=== PATIENT | male | born 1945 | race Caucasian/White ===

== ENCOUNTER 2022-03-02 17:28 | Inpatient (IN) | payer MEDICARE, SELFPAY ==
[2022-03-02 17:39] VITALS: BP 132/64; PULSE 59; RESP 16; TEMP 36.1; O2SAT 97
[2022-03-02 21:13] VITALS: BMI 21.6
[2022-03-02 21:46] VITALS: PULSE 70
[2022-03-02] MEDS: Senna/Docusate Sodium 1 Tablet 2 TABLET PO (21:46)
[2022-03-02] MEDS: Atorvastatin Calcium 80 MG Tablet PO (21:46)
[2022-03-02] MEDS: Famotidine 20 MG Tablet PO (21:46)
[2022-03-02] MEDS: Metoprolol Tartrate 100 MG Tablet PO (21:46)
[2022-03-02] MEDS: traZODone 100 MG Tablet PO (21:47)
[2022-03-02 21:51] VITALS: BP 122/66; PULSE 62; RESP 16; TEMP 36.1; O2SAT 95
[2022-03-02 22:00] VITALS: PULSE 70; RESP 16; O2SAT 97
[2022-03-02 22:45] VITALS: BMI 21.6
[2022-03-03 06:01] LABS: Hematocrit 37.3 % (40-54); Hemoglobin 11.7 g/dL (13.0-16.5); Mean Corp Hgb Conc 31.4 g/dL (32-36); Mean Corpuscular Hgb 25.4 pg (27.0-32.0); Mean Corpuscular Volume 80.9 fL (80-94); Mean Platelet Vol. 9.7 fl (6.2-12.0); Platelet Count 137 K/mm3 (150-450); RBC Distribution Width CV 17.9 % (11.6-14.6); Red Blood Count 4.61 M/mm3 (4.6-6.2); White Blood Count 5.1 K/mm3 (4.4-11.0)
[2022-03-03 06:29] LABS: ALB/GLOB Ratio 1.1 RATIO (0.9-2.4); AST(SGOT) 19 U/L (15-37); Alanine Aminotransfer ALT/SGPT 20 U/L (16-61); Albumin, Serum 2.9 g/dL (3.2-5.0); Alkaline Phosphatase 56 U/L (45-117); Anion Gap 4 (5-15); BUN 21 mg/dL (7-18); BUN/Creat Ratio 15.7 RATIO (10-20); Calcium,Total 8.6 mg/dL (8.5-10.1); Chloride 109 mmol/L (98-107); Creatinine, Serum 1.34 mg/dL (0.70-1.30); EST Glomerular Filtration Rate 55 mL/min (>60); Est Glom Filt Rate - Afr Amer 67 mL/min (>60); Estimated Creatinine Clearance 39.12 ml/min; Globulin 2.6 g/dL (2.2-4.2); Glucose 94 mg/dL (74-106); Magnesium 1.9 mg/dL (1.6-2.6); Phosphorus 2.8 mg/dL (2.5-4.9); Potassium 4.1 mmol/L (3.5-5.1); Protein, Total 5.5 g/dL (6.4-8.2); Sodium Level 140 mmol/L (136-145)
[2022-03-03 06:35] LABS: Bedside Glucose 83 mg/dL (74-106)
[2022-03-03 07:19] VITALS: BP 112/54; PULSE 56; RESP 16; TEMP 37.2; O2SAT 99
[2022-03-03 07:20] VITALS: O2SAT 99
[2022-03-03] MEDS: Escitalopram Oxalate 20 MG Tablet PO (08:26)
[2022-03-03] MEDS: metFORMIN HCl 850 MG Tablet PO ×2 (08:26→16:32)
[2022-03-03] MEDS: Cyanocobalamin 500 MCG Tablet 1000 MCG PO (08:26)
[2022-03-03] MEDS: Famotidine 20 MG Tablet PO ×2 (08:26→20:29)
[2022-03-03] MEDS: Losartan Potassium 100 MG Tablet PO (08:26)
[2022-03-03 08:27] VITALS: PULSE 60
[2022-03-03] MEDS: Aspirin 81 MG TAB.CHEW PO (08:27)
[2022-03-03] MEDS: Metoprolol Tartrate 100 MG Tablet PO ×2 (08:27→20:28)
[2022-03-03] MEDS: Clopidogrel Bisulfate 75 MG Tablet PO (08:27)
[2022-03-03] MEDS: Senna/Docusate Sodium 1 Tablet 2 TABLET PO ×2 (08:28→20:29)
[2022-03-03 10:00] VITALS: BMI 21.6
--- NOTE | 2022-03-03 10:18 | HP.PCM_ITS ---
[facility] - General General Date of Admission: 03/02/22 Date of Service: 03/03/22 Chief Complaint: Debility secondary to CVA. [facility] Narrative GIA DOUGLAS, is a 77 YO M with a PMH of hypertension, hyperlipidemia, coronary artery disease, depression, diabetes mellitus type 2, B12 deficiency, remote TIA and GERD who presented to an emergency department on 02/27/2022 complaining of left side weakness and numbness in his left hand. He also had some numbness on the left side of his lower face. In the emergency department he had a slight left facial droop and denied headache. The initial NIHSS score was 2 and the sx improved while he was in the ED. He was admitted for observation for TIA. He was continued on a statin, aspirin and Plavix. Significant lab at admission included an elevated creatinine at 1.44. Lipid panel showed a total cholesterol of 119 with an HDL of 32 and an LDL of 50 on simvastatin 40 mg. Triglycerides were within normal limits. EKG revealed normal sinus rhythm with no suspicious ST or T wave changes. Stat CT brain without contrast showed no evidence of acute cortical infarct or intracranial hemorrhage. CTA of the head and neck showed no evidence of source vessel arterial occlusion within the head and neck. There was noncalcified plaque at the right carotid bifurcation and right internal carotid artery origin with estimated 45 to 50% stenosis. There was moderate atherosclerosis of the carotid siphons bilaterally with mild luminal narrowing but no flow significant intracranial stenosis. There was no evidence of acute cortical infarct or intracranial hemorrhage. There was atrophy and mild chronic ischemic white matter demyelination. At around 0300 that night He had seizure activity. On te lemetry he had bradycardia during the event down to 27. At 0400 he had increased neurologic deficits with left side flaccid and Left facial droop. He could not grasp with his left hand. 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 MRI of the brain was obtained on 02/28/2022 and showed evidence for small multifocal infarcts of the territory supplied by the right middle cerebral artery, NURIA/MCA watershed area and the LINUX SYSTEM ADMINISTRATOR. The thought was thought to represent subacute ischemia. There was mild to moderate prominence of the sulci and ventricles. On 03/01/2022 on neurological exam was grossly nonfocal except for mild weakness in the left upper extremity and left facial droop. He was alert and oriented x3. A transthoracic echocardiogram showed normal left ventricular systolic function with an EF of 60%. Bubble study was negative for R to L shunt. Gia was seen by the director of early childhood education at and he was diagnosed with severe malnutrition. He had decreased appetite for the preceding 6 months with moderate weight loss, moderate to severe muscle wasting and fat loss. Gia was also seen by PT/OT/ST and found to have dysphagia, left side weakness and cognitive deficits. Transfer to acute rehab at discharge was recommended. Gia was admitted to the acute inpatient rehab unit at [facility] on 03/02/2022 for 3 hours of therapy daily to restore independence/function at or near his level prior to the recent stroke. Afebrile VSS-blood pressure is within goal. Heart rate has ranged from 56-70 Maintaining appropriate oxygen saturation on RA Oral intake is good for breakfast this morning he ate 75 to 100% of his food. Paperwork from the preceding hospital says that he has been losing weight over the past 6 months and has a poor appetite with loss of muscle and fat. He was diagnosed with severe malnutrition. Post void residual today was 266. He is continent of both urine and stool. Discussed with nursing - no problems that need addressed Reviewed the PT/OT/ST notes Medication list reviewed. All lab from this morning was personally reviewed. Hemoglobin is low at 11.7 and the MCV is only 80.9. White blood cell count is within normal limits. Platelets are low at 137,000. Sodium and potassium are within normal limits. The BUN is elevated at 21 with a creatinine of 1.34 and a GFR of 55 but a estimated creatinine clearance of only 39. Hemoglobin A1c is elevated at 5.9. Magnesium and phosphorus are within normal limits. Hemoglobin at the previous hospital on 02/27/2022 was 13.9. Platelet count was 155,000. Creatinine was 1.44 with a BUN of 30. The hemoglobin A1c was 6.3. Gia tells me that he is having a difficult time remembering names for the past few years. He tells me that he has no deficit from the stroke but after a few minutes he was able to tell me he is here because he had a stroke. He denies any difficulty swallowing and tells me his thought processes are unchanged from his baseline prior to the stroke. He is very impulsive and has poor memory. I have found him out in the ríos walking around by himself and he knows how to remove the bed alarm. Will place a pad alarm on his bed and the chair when he is in the recliner. He has significant cognitive dysfunction and poor safety awareness. I spoke to his last night and I think she may also have memory deficits. [facility] Medical History (Updated 03/03/22 @ 21:[address] Xi Muller DO) Coronary artery disease Depression Diabetes mellitus, type 2 GERD (gastroesophageal reflux disease) Hypertension Seizure Snuff user Stroke/cerebrovascular accident Home Medications acetaminophen 325 mg tablet (Tylenol) 1,000 mg PO Q6H PRN Pain 03/02/22 [History Last Taken Unknown] aspirin 81 mg tablet 81 mg PO DAILY Heart health 03/02/22 [History Last Taken Unknown] atorvastatin 80 mg tablet 80 mg PO DAILY Cholestrol 03/02/22 [History Last Taken Unknown] clopidogrel 75 mg tablet 75 mg PO DAILY Supplement 03/02/22 [History Last Taken Unknown] cyanocobalamin (vitamin B-12) 500 mcg tablet (B-12 DOTS) 1,000 mcg PO DAILY supplement 03/02/22 [History Last Taken Unknown] escitalopram oxalate 20 mg tablet 20 mg PO DAILY Depression 03/02/22 [History Last Taken Unknown] famotidine 20 mg tablet 20 mg PO BID GERD 03/02/22 [History Last Taken Unknown] losartan 100 mg tablet 100 mg PO DAILY BP 03/02/22 [History Last Taken Unknown] metformin 850 mg tablet 850 mg PO BID Diabetes 03/02/22 [History Last Taken Unknown] metoprolol tartrate 100 mg tablet 100 mg PO BID BP 03/02/22 [History Last Taken Unknown] nitroglycerin 0.4 mg sublingual tablet 0.4 mg sublingual Q5M PRN Chest Pain 03/02/22 [History Last Taken Unknown] trazodone 100 mg tablet 100 mg PO QHS sleep 03/02/22 [History Last Taken Unknown] Allergy/AdvReac Type Severity Reaction Status Date / Time No Known Allergies Allergy Verified 03/02/22 18:03 Family History (Updated 03/03/22 @ 10:[address] Xi Muller DO) Other Diabetes Surgical History (Updated 03/03/22 @ 13:[address] Xi Muller DO) History of cholecystectomy History of coronary artery stent placement Social History (Updated 03/03/22 @ 13:[address] Xi Muller DO) household members: spouse and other details: Spouse is named is Melani. She sleeps on the first floor of the house an housing: house pets and animals: Yes Smoking Status: Former smoker Tobacco: How many years used: 20 Smokeless tobacco user: snuff and other how long ago did patient quit smokin years ago. 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 Constitutional Constitutional: Reports change in weight, weakness and weight loss Eyes Eyes: Denies change in vision, discharge from eye(s), double vision or eye pain ENT HEENT: Denies dysphagia, headache(s), loss taste/smell, nasal congestion, nasal discharge or sore throat Cardiovascular Cardiovascular: Denies chest pain, claudication, edema, palpitations or paroxysmal nocturnal dyspnea Respiratory/Chest Respiratory/Chest: Denies cough, shortness of breath at rest or shortness of breath with exertion Gastrointestinal Gastrointestinal: Denies abdominal pain, constipation, diarrhea, dyspepsia, nausea or vomiting Genitourinary Genitourinary: Denies dysuria, hematuria or urinary incontinence Musculoskeletal Musculoskeletal: Denies back pain or extremity pain Integumentary Integumentary: Denies dry skin, jaundice, pruritus, rash or wounds Neurologic Neurologic: Denies abnormal speech, confusion, focal weakness, headache(s), lack of coordination, numbness or sensory deficit Psychiatric Psychiatric: Reports depression and other Details: tells me that he does not know if he is depressed any longer but, he has been on an antidepressant for a while ; Denies anxiety Endocrine Endocrinology: Denies cold intolerance, heat intolerance, polydipsia or polyuria Hematologic/Lymphatic Hematologic/Lymphatic: Reports other Details: unaware that he is anemic ; Denies easy bleeding or lymphadenopathy Vital Signs Vital Signs Vital Signs: 03/02/22 17:39 03/02/22 21:46 03/02/22 21:51 Temperature 97.0 F L 96.9 F L Temperature Source Oral Temporal Pulse Rate 59 L 70 62 Respiratory Rate 16 16 Respiratory Effort Respiratory Depth Respiratory Pattern Blood Pressure 132/64 H 122/66 H Blood Pressure Mean 86 84 Blood Pressure Source Monitor Monitor Blood Pressure Position Sitting Semi-Fowlers Blood Pressure Location Right Arm Right Arm Pulse Ox 97 95 Oxygen Delivery Method Room Air Room Air 03/02/22 22:00 03/03/22 07:19 03/03/22 08:27 Temperature 98.9 F Temperature Source Oral Pulse Rate 70 56 L 60 Respiratory Rate 16 16 Respiratory Effort Normal Non-Labored Respiratory Depth Normal Respiratory Pattern Normal Blood Pressure 112/54 L Blood Pressure Mean 73 Blood Pressure Source Monitor Blood Pressure Position Supine Blood Pressure Location Left Arm Pulse Ox 97 99 Oxygen Delivery Method Room Air Room Air Weight Weight: 130 lb Body Mass Index (BMI) 21.6 Indicators for Scoring Admitted with or Primary Diagnosis of CVA/Stroke: Yes Hx of CVA/Stroke: Yes Modified Adonay Score MRS Score at time of Evaluation: 2-Slight disability (physically with slight disability but he has significant cognitive dysfunction/memory difficulties. ) NIHSS NIHSS 1a. Level of Consciousness: Alert; keenly responsive 1b. LOC Questions: Answers BOTH questions correctly. 1c. LOC Commands: Performs both tasks correctly. 2. Best Gaze: Normal 3. Visual: No visual loss 4. Facial Palsy: Minor paralysis (flattened nasolabial fold, asymmetry on smiling) (very mild L facial weakness.....I can not see the same number od teeth on the left side when he smiles. ) 5a. Left Arm: No drift; arm holds 90 (or 45) degrees for full 10 seconds 5b. Right Arm: No drift; arm holds 90 (or 45) degrees for full 10 seconds 6a. Left Leg: No drift; leg holds 30-degree position for full 5 seconds (very mild drift with the Left leg) 6b. Right Leg: No drift; leg holds 30-degree position for full 5 seconds 7. Limb Ataxia: Absent 8. Sensory: [id number] sensory loss; (some decrease in sensation in the LLE) 9. Best Language: No aphasia; normal 10. Dysarthria: Normal 11. Extinction and Inattention: No abnormality Total: 2 Stroke Questions Stroke Team Activated: No Physical Exam Const alert, oriented x3 and no apparent distress Constitutional Narrative: Sitting in the recliner at the bedside eating lunch. Talkative and pleasant. Unaware that he has any deficits from the stroke. General Appearance: cooperative HEENT normocephalic and head/scalp atraumatic HEENT Narrative: Has some hearing deficit. Does not have hearing aids but, I have to repeat things because he is not hearing me. Poor dentition with multiple missing teeth. He wears upper dentures but does not have a lower plate and has multiple teeth missing in the mandible. Mouth: dry mucous membranes Eyes PERRL and EOMs intact bilaterally Neck supple, no JVD, No nodes and no carotid bruits General: trachea midline Resp normal respiratory effort and clear to auscultation bilaterally Effort and Inspection: Negative for tachypneic or respiratory distress Cardio regular rate, regular rhythm, S1 normal heart sound, S2 normal heart sound, no murmurs, no rub and no gallops Cardio Narrative: No ectopy GI normal to inspection, nondistended, normoactive bowel sounds, soft to palpation and non-tender GI Narrative: No guarding with palpation. No hepatosplenomegaly and no masses appreciated. No abdominal bruits. Extremity no calf tenderness General Extremity: Negative for edema Skin Skin Narrative: has some scattered bruising. General Skin Exam: no breakdown Rashes: no rashes Wounds: Negative for wounds noted Neuro Neuro Narrative: See NIHSS scoring. Very mild left lower face weakness. Mild sensory loss in the LLE. No ataxia. No neglect. No visual loss. Mild decrease strength in the LLE. Short term memory is poor. Can not remember that he has to call when he needs to get out of bed. He has poor safety awareness and thinks he has no deficits from the stroke. He loses his balance when turning and when he fatigues he loses his balance....he also almost scissors the legs and loses balance when he is distracted while walking......he is unaware of this. Psych cooperative; Negative for thought process normal Psych Narrative: He is almost euphoric at times. Very pleasant and making jokes. Easily distracted. No agitation. Able to redirect him easily. Thought Content: hallucination(s) Positive for visual (He saw cats in the room 1-2 times while PT was seeing him this morning. ) Results Lab / Micro Data Result Diagrams: 03/03/22 05:06 03/03/22 05:06 Labs: Laboratory Results - last 24 hr 03/03/22 05:06: WBC 5.1, RBC 4.61, Hgb 11.7 L, Hct 37.3 L, MCV 80.9, MCH 25.4 L, MCHC 31.4 L, RDW Std Deviation 52.0 H, RDW Coeff of Irineo 17.9 H, Plt Count 137 L, MPV 9.7 03/03/22 05:06: Sodium 140, Potassium 4.1, Chloride 109 H, Carbon Dioxide 27.0, Anion Gap 4 L, BUN 21 H, Creatinine 1.34 H, Estim Creat Clear Calc 39.12, Est GFR (MDRD) Af Amer 67, Est GFR (MDRD) Non-Af 55 L, BUN/Creatinine Ratio 15.7, Glucose 94, Calcium 8.6, Phosphorus 2.8, Magnesium 1.9, Total Bilirubin 0.70, AST 19, ALT 20, Alkaline Phosphatase 56, Total Protein 5.5 L, Albumin 2.9 L, Globulin 2.6, Albumin/Globulin Ratio 1.1 03/03/22 06:13: POC Glucose 83 Assessment & Plan Assessment/Plan (1) Debility: (2) Stroke/cerebrovascular accident: (3) 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 Will need to follow up with neurology. (4) Visual hallucinations: (5) Left leg weakness: (6) Seizure: PLAN: 1 seizure on the night he was admitted to [place]. No EEG done. No recurrence and no AED at DC from [place]. (7) Severe protein-energy malnutrition: PLAN: Diagnosed at [place]. (8) Microcytic anemia: (9) Iron deficiency anemia: PLAN: Source of blood loss? (10) Hypertension: PLAN: Controlled (11) Diabetes mellitus, type 2: PLAN: HGBA1C 6.3 at [place] (12) Coronary artery disease: PLAN: Had 2 stents in the past about 10 years ago. (13) Depression: PLAN: On Lexapro. (14) Former smoker, stopped smoking in distant past: PLAN: 35 years ago and then started with snuff (15) Snuff user: PLAN: 2 puches a day (16) GERD (gastroesophageal reflux disease): (17) Thrombocytopenia: PLAN: Plan PLAN PT for gait stability OT for ADL's ST for evaluation Analgesics as needed Bowel protocol Fall precautions Assess for Anxiety/Depression GI prophylaxis with Pepcid DVT prophylaxis with heparin 5000 units subcu every 12 hours following DC from Rehab] Follow up with PCP, neurology, cardiology AM lab including CMP, CBC, Mag and Phos personally reviewed NEEDS A EVENT MONITOR AT DISCHARGE IF NOT SENT TO US BY [facility] - multifocal infarcts. IV iron sucrose and then ferrous sulfate + vitamin C thereafter. He is now on aspirin and Plavix and heparin will need to monitor platelet count closely. Decrease metformin to 500 mg p.o. twice daily and recheck Accu-Cheks twice daily. Charges/Coding Visit Charges Inpatient E&M: 31409 Init Hosp L3
[2022-03-03 11:38] LABS: Hemoglobin A1c 5.9 % (3.8-5.6)
--- NOTE | 2022-03-03 13:02 | REHABEVAL_ITS ---
Admission Information Primary Diagnosis:: Debility secondary to ischemic CVA Status Changes from Prescreening?: No changes Identified Actual Problem List:: Cognitve Impr/Memory Loss, Depression, Alteration in Nutrition, Mobility Impaired, Self Care Deficit and Alteration-Leisure Activ. Potential Problem List:: DVT, Bleeding, Infection, UTI, Aspiration, Falls, Skin Integrity and Depression Risk of Complications DVT: NATHANIEL Jennife[place] and - (Heparin 5000 units subcu every 12 hours) Bleeding: Monitor Lab Values, Nursing to Teach Precautions for anti-coagulation therapy., Wound, if applicable, to be assessed every shift. and Stroke patients assessed for lethargy or change in status. Infection: Clinical Staff to Monitor for S/S of infection: and S/S of infection include fever, redness, warmth, etc. Urinary Tract Infection: Monitor for frequency, burning, discomfort, or incontinence. and Nursing will obtain urine sample for urinalysis and C&S when ordered. Aspiration: Clinical staff will monitor for coughing, drooling, congestion., Speech will evaluate swallowing and dsyphasia. and Nursing will monitor patient swallowing during meals. Falls: Patient will be evaluated for Fall Precautions and Patient will be placed on Fall Precautions as indicated per protocol. Skin Breakdown: Nursing will assess skin daily using assessment tool. and Nursing will place on Skin Breakdown Precautions as indicated. Pain: Clinical staff will assess patient's pain level per protocol., Medications will be given, if needed, and the pain level reassessed. and Other methods: Massage, distraction, decrease stimulus, etc. used PRN. Plan of Care Patient requires physician specializing in physical medicine and rehab oversight to provide close medical supervision of rehab issues including: Pain Management, Sleep Problems, Bowel and Bladder, Medical and co-morbidity Management, DVT prophylaxis, Rehabilitation Leadership and Coordination of treatment team Patient needs Physical Therapy: For a minimum of 1 hour and At least 5 out of 7 days Patient needs Physical Therapy to improve:: Mobility, Strengthening, Transfers, Stretching, ROM, Endurance, Stairs, Gait and Balance Patient needs Occupational Therapy: For a minimum of 1 hour and At least 5 out of 7 days Patient needs Occupational Therapy to improve ADL's incl.: Eating, Grooming, Bathing, Dressing, Toileting, Toilet transfers, Community Reintegration, Higher functioning activities, Household tasks, Adaptive Equipment, Splinting and Other activities as determined Patient requires speech therapy: For a minimum of 1 hour and At least 5 out of 7 days Patient requires speech therapy for: Swallowing, Cognition, Language Skills and Compensatory Strategies Patient requires 24/ Rehabilitation Nursing for: Pain Issues, Identifying and preventing risk factors, Monitoring and reporting current medical conditions, Assisting with ambulation, transfer, and all ADL's, Teaching patients about disease process and medications, Family teaching, Providing safe environment, Bowel and Bladder Issues, Skin integrity and Medication Management Patient needs Decommissioning Well Site Manager/ Case Management for: Discharge Planning, Arranging Home Equipment or Services and Family Interventions Patient needs Dietary and Nutrition Services for: Adequate Nutrition, Nutritional Supplements and Nutritional Education Goals Patient will remain: free from falls and or injury at time of discharge. Patient will perform bed mobility at: MOD I level of assist. Patient will complete transfers from bed to chair at: MOD I level of assist. Patient will ambulate: - (500 feet on various surfaces to allow patient to return to the community. He will ambulate 300 feet to various locations at standby assist in a timely matter without increased distraction or balance issues.) Patient will complete upper body dressing at: MOD I level of assist. Patient will complete lower body dressing at: MOD I level of assist. Patient will complete toileting at: MOD I level of assist. Patient will perform bathing at: MOD I level of assist. Patient will complete grooming at: MOD I level of assist. Patient will complete home management skills at: MOD I level of assist. Patient will achieve: - (4 steps with 1 handrail at standby assist) Discharge Planning Pt Prognosis for Sig. Practical Improv. w/in Reasonable Time: Good Estimated Length of stay (days): 28 Anticipated D/C Destination: TBD Was Preadmission Assessment Accurate?: Yes
[2022-03-03 14:01] LABS: Ferritin 19 ng/mL (26-388); Iron 27 ug/dL (65-175); Iron Binding Capacity,Total 264 ug/dL (250-450); PERCENT IRON SATURATION 10.2 % (15.0-55.0)
--- NOTE | 2022-03-03 14:24 | NURSING ---
Patient very pleasant. Needs constant cues and reminders. Patient has been instructed operations business partner lindo use multiple times but he has not used it appropriately yet today.
[2022-03-03 16:15] LABS: Bedside Glucose 133 mg/dL (74-106)
[2022-03-03 20:00] VITALS: O2SAT 97
[2022-03-03 20:28] VITALS: BP 120/57; PULSE 59
[2022-03-03] MEDS: traZODone 100 MG Tablet PO (20:29)
[2022-03-03] MEDS: Atorvastatin Calcium 80 MG Tablet PO (20:30)
[2022-03-03 20:32] VITALS: BP 120/57; PULSE 59; RESP 16; TEMP 36.9; O2SAT 97
[2022-03-03] MEDS: Heparin Injection (Vial) 5,000 UNIT/ML VIAL 5000 UNIT SC (23:15)
[2022-03-04 07:15] LABS: Bedside Glucose 96 mg/dL (74-106)
[2022-03-04 07:21] VITALS: BP 111/54; PULSE 58; RESP 16; TEMP 36.3; O2SAT 98
[2022-03-04 07:39] LABS: Bacteria 0 SEEN /hpf (None Seen); Mucous, Urine 0 SEEN /hpf (<or=2+); Red Blood Cells-Urine 0 SEEN /hpf (0-5); Squamous Epithelial Cells - UA 0 SEEN /hpf (0-5); White Blood Cells 0 SEEN /hpf (0-5)
[2022-03-04 07:54] VITALS: O2SAT 98
[2022-03-04 08:06] LABS: Color, Urine Yellow (Yellow); Glucose, Dipstick Normal (Normal); Ketone-Dipstick Negative (Negative); Leukocyte Esterase-Dipstick 25 /ul (Negative); Nitrite-Dipstick Negative (Negative); Occult Blood-Urine Negative /ul (Negative); Protein-Dipstick Negative (Negative); Specific Gravity, Urine 1.015 (1.002-1.030); Urine Bilirubin Dipstick Negative (Negative); Urine Clarity Clear (Clear); Urine Urobilinogen Normal (Normal)
[2022-03-04] MEDS: Escitalopram Oxalate 20 MG Tablet PO (08:30)
[2022-03-04] MEDS: Losartan Potassium 100 MG Tablet PO (08:30)
[2022-03-04] MEDS: Cyanocobalamin 500 MCG Tablet 1000 MCG PO (08:30)
[2022-03-04] MEDS: Clopidogrel Bisulfate 75 MG Tablet PO (08:30)
[2022-03-04] MEDS: Aspirin 81 MG TAB.CHEW PO (08:30)
[2022-03-04] MEDS: Heparin Injection (Vial) 5,000 UNIT/ML VIAL 5000 UNIT SC ×2 (08:31→21:24)
[2022-03-04 08:33] VITALS: PULSE 60
[2022-03-04] MEDS: Metoprolol Tartrate 100 MG Tablet PO ×2 (08:33→21:23)
[2022-03-04] MEDS: Famotidine 20 MG Tablet PO ×2 (08:37→21:23)
[2022-03-04] MEDS: metFORMIN HCl 500 MG Tablet PO ×2 (09:42→17:04)
[2022-03-04] MEDS: Sodium Ferric Gluconat 250 MG in 0.9% Normal Saline 250 ML 135 MG IV (10:20)
[2022-03-04] MEDS: 0.9% Saline Lock 10 ML Syringe IV ×2 (10:24→21:25)
[2022-03-04 11:48] VITALS: BMI 21.6
[2022-03-04 16:45] LABS: Bedside Glucose 94 mg/dL (74-106)
[2022-03-04 19:46] VITALS: BP 136/75; PULSE 52; RESP 17; TEMP 37.5; O2SAT 99
[2022-03-04] MEDS: Atorvastatin Calcium 80 MG Tablet PO (21:22)
[2022-03-04 21:23] VITALS: BP 136/75; PULSE 52
[2022-03-04] MEDS: traZODone 100 MG Tablet PO (21:23)
[2022-03-05 07:22] VITALS: O2SAT 98
[2022-03-05 07:37] VITALS: BP 109/75; PULSE 82; RESP 18; TEMP 36.8; O2SAT 98
[2022-03-05 07:49] VITALS: PULSE 82
[2022-03-05] MEDS: Losartan Potassium 100 MG Tablet PO (07:49)
[2022-03-05] MEDS: Metoprolol Tartrate 100 MG Tablet PO ×2 (07:49→22:28)
[2022-03-05] MEDS: Aspirin 81 MG TAB.CHEW PO (07:49)
[2022-03-05] MEDS: Escitalopram Oxalate 20 MG Tablet PO (07:49)
[2022-03-05] MEDS: metFORMIN HCl 500 MG Tablet PO ×2 (07:50→17:07)
[2022-03-05] MEDS: Cyanocobalamin 500 MCG Tablet 1000 MCG PO (07:51)
[2022-03-05] MEDS: Famotidine 20 MG Tablet PO ×2 (07:53→22:28)
[2022-03-05] MEDS: Heparin Injection (Vial) 5,000 UNIT/ML VIAL 5000 UNIT SC ×2 (07:53→22:28)
[2022-03-05] MEDS: Clopidogrel Bisulfate 75 MG Tablet PO (07:54)
[2022-03-05 07:55] LABS: Bedside Glucose 64 mg/dL (74-106)
[2022-03-05 08:15] LABS: Bedside Glucose 76 mg/dL (74-106)
[2022-03-05] MEDS: 0.9% Saline Lock 10 ML Syringe IV (10:22)
[2022-03-05] MEDS: Sodium Ferric Gluconat 250 MG in 0.9% Normal Saline 250 ML 135 MG IV (10:22)
[2022-03-05 14:16] VITALS: BMI 21.6
[2022-03-05 16:45] LABS: Bedside Glucose 103 mg/dL (74-106)
[2022-03-05 19:18] VITALS: BP 134/57; PULSE 53; RESP 17; TEMP 36.8; O2SAT 98
[2022-03-05 22:28] VITALS: BP 134/57; PULSE 53
[2022-03-05] MEDS: Atorvastatin Calcium 80 MG Tablet PO (22:28)
[2022-03-05] MEDS: traZODone 100 MG Tablet PO (22:28)
[2022-03-06 07:21] LABS: Bedside Glucose 76 mg/dL (74-106)
[2022-03-06 07:36] VITALS: BP 120/66; PULSE 52; RESP 18; TEMP 36.4; O2SAT 94
[2022-03-06] MEDS: metFORMIN HCl 500 MG Tablet PO (09:06)
[2022-03-06 09:07] VITALS: BP 120/66; PULSE 58
[2022-03-06] MEDS: Metoprolol Tartrate 100 MG Tablet PO ×2 (09:07→20:56)
[2022-03-06] MEDS: Cyanocobalamin 500 MCG Tablet 1000 MCG PO (09:08)
[2022-03-06] MEDS: Aspirin 81 MG TAB.CHEW PO (09:08)
[2022-03-06] MEDS: Losartan Potassium 100 MG Tablet PO (09:08)
[2022-03-06] MEDS: Clopidogrel Bisulfate 75 MG Tablet PO (09:08)
[2022-03-06] MEDS: Escitalopram Oxalate 20 MG Tablet PO (09:08)
[2022-03-06] MEDS: Famotidine 20 MG Tablet PO ×2 (09:09→20:55)
[2022-03-06] MEDS: Heparin Injection (Vial) 5,000 UNIT/ML VIAL 5000 UNIT SC ×2 (10:20→20:57)
[2022-03-06] MEDS: 0.9% Saline Lock 10 ML Syringe IV ×2 (10:22→22:03)
[2022-03-06] MEDS: Sodium Ferric Gluconat 250 MG in 0.9% Normal Saline 250 ML 135 MG IV (10:22)
--- NOTE | 2022-03-06 10:53 | PCM.PROGNOTE ---
Subjective Subjective Afebrile VSS-blood pressure is well controlled. Heart rate over the past 24 hours has ranged from 50 to to 82. Maintaining appropriate oxygen saturation on RA-94 to 98% Oral intake is good for fluids and is eating 75-100% of his meals Fluid balance for 03/05/2022 was +785. The blood sugar record was reviewed. Yesterday a.m. his blood sugar was only 64 despite decreasing the metformin dose. Fasting today is 76. Discussed with nursing - no problems that need addressed other than he is impulsive Reviewed the PT/OT/ST notes Medication list reviewed. Stool for occult blood was negative. Urine had no RBCs. Julian denies lightheadedness, vertigo, CP, SOB at rest, SOB with exertion, cough, nausea, vomiting, abd pain, diarrhea, constipation, dysuria, calf pain and ankle swelling. He has no complaints today. Objective Data Objective Data Vital Signs: Vital Signs Temp Pulse Resp BP Pulse Ox O2 Del Method 97.6 F L 58 L 18 120/66 94 Room Air 03/06/22 07:36 03/06/22 09:07 03/06/22 07:36 03/06/22 09:07 03/06/22 07:36 03/06/22 07:36 Oxygen Delivery Method Room Air Weight: 130 lb Body Mass Index (BMI) 21.6 Intake & Output: Intake and Output for Last 24 Hours 03/04/22 03/05/22 03/06/22 23:59 23:59 23:59 Intake Total 2030 / 2030 1785 / 1785 Output Total 800 / 800 1000 / 1000 Balance 1230 / 1230 785 / 785 Lab / Micro Data Result Diagrams: 03/03/22 05:06 03/03/22 05:06 Labs: Laboratory Results - last 24 hr 03/05/22 16:23: POC Glucose 103 03/06/22 06:45: POC Glucose 76 Micro: Microbiology 03/04/22 07:15 Stool Stool Occult Blood (MALIA) - Final Physical Exam Const alert and no apparent distress Constitutional Narrative: Still with poor safety awareness and poor short term memory. Very pleasant and interacts well with staff and other patients. General Appearance: cooperative Resp clear to auscultation bilaterally Cardio regular rate, regular rhythm and no gallops GI normal to inspection, nondistended, normoactive bowel sounds, soft to palpation and non-tender Extremity no calf tenderness General Extremity: no tenderness to palpation of joints or extremities; Negative for edema Skin General Skin Exam: no breakdown Rashes: no rashes Wounds: Negative for wounds noted Neuro Neuro Narrative: Julian's biggest problem is with cognition. He is doing well with PT/OT. I suspect he had pre-existing dementia prior to the stroke. Psych cooperative; Negative for thought process normal Psych Narrative: He seems a little too euphoric at times. Poor attention span. Can not concentrate. 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 Possible Lewy body dementia with hallucinations and delusions vs. underlying mental health disorder. His tells me that he is having a phone affair with another woman and their conversations are getting more sexual. He talks to this woman within earshot of his . (4) Visual hallucinations: PLAN: He sees animals in his room that aren't there and smoke coming of the pages of a story he is trying to read. Several different therapists have noted this when working with him. (5) Left leg weakness: (6) Seizure: PLAN: No seizures in rehab and on no antiepileptics. (7) Severe protein-energy malnutrition: PLAN: Per the last hospital.......not per our electrical instrument repairer. Melani tells me that he has not been eating well and he has lost about 30 lbs in the last 6 months. (8) Microcytic anemia: PLAN: Due to iron deficiency. No source of blood loss so may be nutritional. He had a colonoscopy and EGD in 2019 and other than diverticulosis there were no abnormalities. (9) Iron deficiency anemia: PLAN: Received IV iron sucrose and is not on Vitamin C and ferrous sulfate with lunch daily. (10) Hypertension: PLAN: mostly controlled.....occasional systolic > 130. No lightheadedness. (11) Diabetes mellitus, type 2: PLAN: Having some low BS's......will decrease the Metformin. (12) Coronary artery disease: PLAN: Stable - no CP or SOB with exertion. (13) Depression: PLAN: Normal affect (14) Former smoker, stopped smoking in distant past: (15) Snuff user: (16) GERD (gastroesophageal reflux disease): (17) Thrombocytopenia: PLAN: due to antiplatelet agents and heparin? Continue to monitor. PLAN: Plan 1. Continue therapy 2. Obtain the results of most recent colonoscopy/EGD from Dr. Aguilera in [place] - obtained and reviewed. 3. Place Metformin on hold. 4. Monitor the BS's ACHS for 48 hours Charges/Coding Visit Charges Inpatient E&M: 51718 Subs Hosp L2
[2022-03-06 11:30] LABS: Bedside Glucose 91 mg/dL (74-106)
--- NOTE | 2022-03-06 12:48 | CASEMGMT ---
Social Work IDT met with patient and for Team meeting. Attempted to call son, but number is not working. Discussed patient's progress in PT/OT/ST/SN. Pt is physically doing well, but cognitively impaired. IDT expressed concern about pt and living at home together. Pt was caring for prior. SW inquired about the assistance pt provided to . 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 can drive. Pt does have little insight to cognitive deficits. Dr suggesting pt possibly having underlying Lewy-Body Dementia as evidenced by noting to previous short-term memory problems, and pt having intermittent visual hallucinations. SW to get new phone number for son and contact him. Educated to [facility] [place] insurance with [employer]D 2/2 and continued stay is not guaranteed. SW to continue to follow for DC planning. Will ReTeam weekly. WILMER Urias [employer]
[2022-03-06 16:30] LABS: Bedside Glucose 103 mg/dL (74-106)
[2022-03-06 17:00] VITALS: BMI 21.6
[2022-03-06 20:00] VITALS: BP 137/67; PULSE 62; RESP 16; TEMP 36.5; O2SAT 98
[2022-03-06] MEDS: Atorvastatin Calcium 80 MG Tablet PO (20:55)
[2022-03-06 20:56] VITALS: BP 137/67; PULSE 62
[2022-03-06] MEDS: traZODone 100 MG Tablet PO (20:56)
[2022-03-06 22:25] LABS: Bedside Glucose 89 mg/dL (74-106)
--- NOTE | 2022-03-07 06:44 | NURSING ---
AM blood sugar 68, pt denies symptoms, given orange juice with sugar, will recheck in 15 minutes.
[2022-03-07 07:05] VITALS: BP 125/61; PULSE 60; RESP 16; TEMP 36.4; O2SAT 96
[2022-03-07 07:26] LABS: Bedside Glucose 68 mg/dL (74-106)
[2022-03-07 07:26] LABS: Bedside Glucose 94 mg/dL (74-106)
[2022-03-07 07:45] VITALS: BP 125/61; PULSE 60
[2022-03-07] MEDS: Metoprolol Tartrate 100 MG Tablet PO ×2 (07:45→21:22)
[2022-03-07] MEDS: Heparin Injection (Vial) 5,000 UNIT/ML VIAL 5000 UNIT SC ×2 (07:45→21:22)
[2022-03-07] MEDS: Famotidine 20 MG Tablet PO ×2 (07:46→21:22)
[2022-03-07] MEDS: Escitalopram Oxalate 20 MG Tablet PO (07:46)
[2022-03-07] MEDS: Cyanocobalamin 500 MCG Tablet 1000 MCG PO (07:46)
[2022-03-07] MEDS: Losartan Potassium 100 MG Tablet PO (07:46)
[2022-03-07] MEDS: Aspirin 81 MG TAB.CHEW PO (07:46)
[2022-03-07] MEDS: Clopidogrel Bisulfate 75 MG Tablet PO (07:46)
[2022-03-07 12:26] LABS: Bedside Glucose 97 mg/dL (74-106)
[2022-03-07 14:34] VITALS: BMI 21.6
--- NOTE | 2022-03-07 15:54 | CHAPLAIN ---
Type of Pastoral Visit _x__ Initial Visit ___ Follow-up Visit ___ On-call Visit ___ General Patient Visit ___ Spiritual Assessment ___ Family Conference ___ Bereavement ___ Rapid Response ___ Code Blue ___ Other (describe below) Pastoral Care Referral From _x__ Patient ___ Family ___ Nurse ___ Physician ___ Paving Supervisor ___ Senior Network Engineer ___ Other (describe below) Sacrament/Intervention _x__ Active listening ___ Anointing ___ Pentecostal ___ Bereavement ___ Communion _x__ Ela exploration ___ _x__ Life review _x__ Prayer ___ Reconciliation ___ Sacrament of Sick _x__ Supportive presence ___ Wedding ___ Other (describe below) Pastoral Comments patient is pleasant and receptive to visit of this electro mechanical assembler; pt reports some improvement but admits not as fast as I had hoped; pt is concerned about his at home and was hoping to get home sooner rather than later; pt's mayra is in his young granddaughter who wants him home too; pt states that he puts things in God's hands and welcomes a prayer
[2022-03-07 17:15] LABS: Bedside Glucose 164 mg/dL (74-106)
[2022-03-07 19:34] VITALS: BP 141/87; PULSE 55; RESP 17; TEMP 36.6; O2SAT 97
[2022-03-07 21:22] VITALS: PULSE 61
[2022-03-07] MEDS: traZODone 100 MG Tablet PO (21:22)
[2022-03-07] MEDS: Atorvastatin Calcium 80 MG Tablet PO (21:22)
[2022-03-07] MEDS: 0.9% Saline Lock 10 ML Syringe IV (21:28)
[2022-03-07 21:30] VITALS: BMI 21.6
[2022-03-07 22:00] VITALS: PULSE 62; RESP 15; O2SAT 97
[2022-03-07 23:05] LABS: Bedside Glucose 160 mg/dL (74-106)
[2022-03-08 07:00] LABS: Bedside Glucose 89 mg/dL (74-106)
[2022-03-08 08:04] VITALS: BP 127/63; PULSE 54
[2022-03-08] MEDS: Famotidine 20 MG Tablet PO ×2 (08:04→21:52)
[2022-03-08] MEDS: Metoprolol Tartrate 100 MG Tablet PO ×2 (08:04→21:53)
[2022-03-08] MEDS: Aspirin 81 MG TAB.CHEW PO (08:04)
[2022-03-08] MEDS: Escitalopram Oxalate 20 MG Tablet PO (08:04)
[2022-03-08] MEDS: Losartan Potassium 100 MG Tablet PO (08:04)
[2022-03-08] MEDS: Heparin Injection (Vial) 5,000 UNIT/ML VIAL 5000 UNIT SC ×2 (08:04→21:52)
[2022-03-08] MEDS: Cyanocobalamin 500 MCG Tablet 1000 MCG PO (08:04)
[2022-03-08] MEDS: Clopidogrel Bisulfate 75 MG Tablet PO (08:04)
[2022-03-08 09:47] VITALS: BP 127/63; PULSE 54; RESP 16; TEMP 36.4; O2SAT 97
[2022-03-08 10:31] VITALS: BMI 21.6
[2022-03-08 11:55] LABS: Bedside Glucose 95 mg/dL (74-106)
[2022-03-08] MEDS: 0.9% Saline Lock 10 ML Syringe IV (16:54)
[2022-03-08 17:15] LABS: Bedside Glucose 106 mg/dL (74-106)
--- NOTE | 2022-03-08 17:15 | PCM.PROGNOTE ---
Subjective Subjective Afebrile VSS Maintaining appropriate oxygen saturation on RA Oral intake is good since he has been in rehab. He is eating 75 to 100% of his meals. ? why he was losing weight? Has not been weighed since admission. Discussed with nursing - no problems that need addressed. Less impulse and is calling the nurse when he wants to get out of bed or out of the recliner into bed. Reviewed the PT/OT/ST notes Medication list reviewed. Julian denies lightheadedness, vertigo, CP, SOB at rest, SOB with exertion, cough, nausea, vomiting, abd pain, diarrhea, constipation, dysuria, calf pain and ankle swelling. He is sleeping well and eating good. No agitation and no restlessness. Following the rules better. Less impulsive. Objective Data Objective Data Vital Signs: Vital Signs Temp Pulse Resp BP Pulse Ox O2 Del Method 97.5 F L 54 L 16 127/63 H 97 Room Air 03/08/22 09:47 03/08/22 09:47 03/08/22 09:47 03/08/22 09:47 03/08/22 09:47 03/08/22 09:47 Oxygen Delivery Method Room Air Weight: 130 lb Body Mass Index (BMI) 21.6 Intake & Output: Intake and Output for Last 24 Hours 03/06/22 03/07/22 03/08/22 23:59 23:59 23:59 Intake Total 1460 / 1460 1670 / 1670 1090 / 1090 Output Total 500 / 500 Balance 960 / 960 1670 / 1670 1090 / 1090 Lab / Micro Data Result Diagrams: 03/03/22 05:06 03/03/22 05:06 Labs: Laboratory Results - last 24 hr 03/07/22 16:50: POC Glucose 164 H 03/07/22 21:21: POC Glucose 160 H 03/08/22 06:34: POC Glucose 89 03/08/22 11:33: POC Glucose 95 Micro: Microbiology 03/04/22 07:15 Stool Stool Occult Blood (MALIA) - Final Physical Exam Const alert, oriented x3 and no apparent distress General Appearance: cooperative HEENT HEENT Narrative: Mucous membranes are moist. Cardio regular rate, regular rhythm and no gallops Cardio Narrative: No ectopy GI normal to inspection, nondistended, normoactive bowel sounds, soft to palpation and non-tender Extremity no calf tenderness General Extremity: Negative for edema Skin Skin Narrative: has some scattered bruising. General Skin Exam: no breakdown Rashes: no rashes Psych cooperative; Negative for thought process normal Psych Narrative: He seems a little too euphoric at times. Poor attention span. Can not concentrate. Thought Content: hallucination(s) Positive for visual (He saw cats in the room 1-2 times while PT was seeing him this morning. ) Assessment & Plan Assessment/Plan (1) Debility: (2) Stroke/cerebrovascular accident: (3) Cognitive deficit as late effect of cerebrovascular accident (CVA): PLAN: Likely in conjunction with pre-existing dementia. Possible Lewy body dementia with hallucinations and delusions vs. underlying mental health disorder. His tells me that he is having a phone affair with another woman and their conversations are getting more sexual. He talks to this woman within earshot of his . (4) Visual hallucinations: PLAN: He sees animals in his room that aren't there and smoke coming of the pages of a story he is trying to read. Several different therapists have noted this when working with him. (5) Left leg weakness: (6) Seizure: PLAN: No seizures in rehab and on no antiepileptics. (7) Severe protein-energy malnutrition: PLAN: Per the last hospital.......not per our barrel rib matting machine operator. Melani tells me that he has not been eating well and he has lost about 30 lbs in the last 6 months. (8) Microcytic anemia: PLAN: Due to iron deficiency. No source of blood loss so may be nutritional. He had a colonoscopy and EGD in 2019 and other than diverticulosis there were no abnormalities. (9) Iron deficiency anemia: PLAN: Received IV iron sucrose and is not on Vitamin C and ferrous sulfate with lunch daily. (10) Hypertension: PLAN: mostly controlled.....occasional systolic > 130. No lightheadedness. (11) Diabetes mellitus, type 2: PLAN: Having some low BS's......will decrease the Metformin. (12) Coronary artery disease: PLAN: Stable - no CP or SOB with exertion. (13) Depression: PLAN: Normal affect (14) Former smoker, stopped smoking in distant past: (15) Snuff user: (16) GERD (gastroesophageal reflux disease): (17) Thrombocytopenia: PLAN: due to antiplatelet agents and heparin? Continue to monitor. PLAN: Plan 1. Continue therapy 2. We will have Julian follow-up with neurology for the stroke but also for suspected dementia with hallucinations and delusions. 3. Recheck a CBC and BMP on Sunday. 4. Continue current medications with the exception of metformin. We have been holding the Metformin since the and the BS's have not been elevated. Will DC today. 5. DC Plavix after 4 weeks and continue on ASA alone. DC on Mar 27 Charges/Coding Visit Charges Inpatient E&M: 35820 Subs Hosp L2
[2022-03-08 19:21] VITALS: BP 137/65; PULSE 53; RESP 18; TEMP 36.9; O2SAT 99
[2022-03-08] MEDS: Atorvastatin Calcium 80 MG Tablet PO (21:52)
[2022-03-08] MEDS: traZODone 100 MG Tablet PO (21:52)
[2022-03-08 21:53] VITALS: PULSE 56
[2022-03-08 22:36] LABS: Bedside Glucose 92 mg/dL (74-106)
[2022-03-09 01:59] VITALS: BMI 21.6
[2022-03-09] MEDS: 0.9% Saline Lock 10 ML Syringe IV (05:12)
[2022-03-09 07:20] LABS: Bedside Glucose 94 mg/dL (74-106)
[2022-03-09 07:53] VITALS: BP 148/64; PULSE 55
[2022-03-09] MEDS: Metoprolol Tartrate 100 MG Tablet PO ×2 (07:53→21:16)
[2022-03-09] MEDS: Losartan Potassium 100 MG Tablet PO (07:54)
[2022-03-09] MEDS: Heparin Injection (Vial) 5,000 UNIT/ML VIAL 5000 UNIT SC ×2 (07:54→21:18)
[2022-03-09] MEDS: Cyanocobalamin 500 MCG Tablet 1000 MCG PO (07:54)
[2022-03-09] MEDS: Famotidine 20 MG Tablet PO ×2 (07:54→21:16)
[2022-03-09] MEDS: Aspirin 81 MG TAB.CHEW PO (07:54)
[2022-03-09] MEDS: Escitalopram Oxalate 20 MG Tablet PO (07:54)
[2022-03-09] MEDS: Clopidogrel Bisulfate 75 MG Tablet PO (07:54)
[2022-03-09 08:14] VITALS: BP 148/64; PULSE 55; RESP 15; TEMP 36.9; O2SAT 96
--- NOTE | 2022-03-09 09:41 | CASEMGMT ---
Addendum entered by Tania Jya 03/09/22 17:24: Received return phone call from son. SW explained pt's progress in therapy and concerns with pt and being in the home together. Explained both appear to have cognitive impairment and pt will need 24/7 supervision at home, along with assistance with meds and finances. Pt still having issues with balance and poor insight to deficits. Son agreed and confirms mother has shown signs of early Alzheimer's for several years which is why pt had been caring for her. SW suggested AL for both to get additional care as needed, but that will take some time to place and may not happen by time of DC. Explained insurance update is today and unsure if pt will get approved more time. Son expressed understanding and will speak with siblings about this information. SW explained HHC or OP can be coordinated for ongoing therapy; if HHC, a SW can assist with ongoing placement options. Son stated HHC would not be a good idea because his mom is a hoarder and there are 2ft wide pathways in the home, so if pt fell, it would be a much worse fall. SW explained an APS referral will be made in that case to assist with ongoing resources for in the home and potential placement outside of the home, along with helping the children in navigating this situation. SW can coordinate OP therapy, but pt cannot drive and unsure if is save to drive. Son stated he will figure that out. SW offered [facility] SNF for PT/OT/ST. Son agreed. Son expressed great appreciation for care for pt and this worker's conversation and assistance. SW to continue to follow. Original Note: Social Work Left message with son, Israel, to discuss DC plans or get accurate phone number for brother to discuss. Will continue to follow. Tania Jay ,WILMER PFEIFFERW
[2022-03-09 11:17] VITALS: BMI 21.6
--- NOTE | 2022-03-09 11:27 | NURSING ---
Event monitor removed and placed in return box to be mailed back to facility.
[2022-03-09 11:35] LABS: Bedside Glucose 116 mg/dL (74-106)
[2022-03-09 16:25] LABS: Bedside Glucose 96 mg/dL (74-106)
[2022-03-09 19:52] VITALS: BP 127/65; PULSE 55; RESP 16; TEMP 36.9; O2SAT 96
[2022-03-09 21:15] VITALS: O2SAT 98
[2022-03-09 21:16] VITALS: BP 127/65; PULSE 55
[2022-03-09] MEDS: traZODone 100 MG Tablet PO (21:16)
[2022-03-09] MEDS: Atorvastatin Calcium 80 MG Tablet PO (21:16)
[2022-03-09 22:10] LABS: Bedside Glucose 162 mg/dL (74-106)
[2022-03-10 05:58] LABS: Hemoglobin 11.6 g/dL (13.0-16.5); Mean Corp Hgb Conc 30.5 g/dL (32-36); Mean Corpuscular Hgb 25.6 pg (27.0-32.0); Mean Corpuscular Volume 83.7 fL (80-94); Mean Platelet Vol. 9.9 fl (6.2-12.0); Platelet Count 154 K/mm3 (150-450); RBC Distribution Width CV 19.8 % (11.6-14.6); RBC Distribution Width SD 57.7 fl (35.1-43.9); Red Blood Count 4.54 M/mm3 (4.6-6.2); White Blood Count 4.8 K/mm3 (4.4-11.0)
[2022-03-10 06:27] LABS: Anion Gap 6 (5-15); BUN 21 mg/dL (7-18); BUN/Creat Ratio 14.4 RATIO (10-20); Calcium,Total 8.5 mg/dL (8.5-10.1); Chloride 112 mmol/L (98-107); Creatinine, Serum 1.46 mg/dL (0.70-1.30); EST Glomerular Filtration Rate 50 mL/min (>60); Est Glom Filt Rate - Afr Amer 60 mL/min (>60); Glucose 75 mg/dL (74-106); Potassium 4.3 mmol/L (3.5-5.1); Sodium Level 145 mmol/L (136-145)
[2022-03-10 07:42] VITALS: BP 114/60; PULSE 60; RESP 16; TEMP 36.4; O2SAT 98
[2022-03-10 07:50] LABS: Bedside Glucose 89 mg/dL (74-106)
[2022-03-10] MEDS: Losartan Potassium 100 MG Tablet PO (09:36)
[2022-03-10] MEDS: Aspirin 81 MG TAB.CHEW PO (09:36)
[2022-03-10] MEDS: Famotidine 20 MG Tablet PO ×2 (09:36→21:05)
[2022-03-10] MEDS: Cyanocobalamin 500 MCG Tablet 1000 MCG PO (09:36)
[2022-03-10] MEDS: Clopidogrel Bisulfate 75 MG Tablet PO (09:36)
[2022-03-10 09:37] VITALS: PULSE 60
[2022-03-10] MEDS: Escitalopram Oxalate 20 MG Tablet PO (09:37)
[2022-03-10] MEDS: Metoprolol Tartrate 100 MG Tablet PO ×2 (09:37→21:05)
[2022-03-10] MEDS: Heparin Injection (Vial) 5,000 UNIT/ML VIAL 5000 UNIT SC ×2 (09:38→21:05)
--- NOTE | 2022-03-10 10:34 | PCM.PN.BLA ---
Progress Note Afebrile Blood pressure is well controlled Maintaining appropriate oxygen saturation on room air Adequate oral intake Blood sugar record was reviewed and there are no blood sugars greater than 180 on no medication for diabetes. All lab from this morning was personally reviewed. The white blood cell count is normal at 4.8. Hemoglobin is stable at 11.6. Platelets are within normal limits. Sodium is 145 and potassium is 4.3. The BUN is 21 and the creatinine is 1.46, up from 1.34 on 03/03/2022. I met with Julian's and his 2 sons Israel and Julian yesterday. We discussed plans for discharge. Israel and Julian tell me that he cannot go home to his house in the current state at the end. Melani is a hoarder and apparently there is barely any place to walk unobstructed. Julian and Israel would like there mother to be the first to contact with any decisions regarding [place]'s disposition at [place] but, if there is a problem we will call Israel. Julian lives close to his parents and he is the first contact if there are problems with Julian and someone needs to come in. They are aware that I am going to complete paperwork to have Julian's drivers license removed. They wonder if he can ever get it back. I told them they can discuss that with his neurologist. We discussed the dementia, possibly Lewy Body and the hallucinations and delusions. He has no hx of a mental health disorder. We are making an appt for Julian to see Dr. Alexander for the stroke but, also to be evaluated for Lewy body dementia. No tx at this time since patients with Lewy Body dementia are very sensitive to medications, negrito antipsychotics. We have had no behavior problems. Julian is having a very good day today. He is alert and oriented. 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 He is not euphoric and he is not having hallucinations. He c/o dizziness at times, mostly when he is bending over. We had a discussion about Lewy Body Dementia and why I suspect he has this. I also told him he could not drive at [place]. We talked him not being able to go home at [place] and he asked appropriate questions. He revealed his is a hoarder and he has tried in the past to clean up after her but, in 48 hours it is back to the way it was and she gets angry when he tries to clean up and throw things away. He has 1 room in the house for his things, he keeps his antiques in there. Assessment & Plan Assessment/Plan (1) Debility: (2) Stroke/cerebrovascular accident: (3) Cognitive deficit as late effect of cerebrovascular accident (CVA): (4) Visual hallucinations: (5) Left leg weakness: (6) Seizure: (7) Severe protein-energy malnutrition: (8) Microcytic anemia: (9) Iron deficiency anemia: (10) Hypertension: (11) Diabetes mellitus, type 2: (12) Coronary artery disease: (13) Depression: (14) Former smoker, stopped smoking in distant past: (15) Snuff user: (16) GERD (gastroesophageal reflux disease): (17) Thrombocytopenia: (18) Lewy body dementia: PLAN: Plan 1. Continue therapy 2. I discussed with the professor of social work that Israel and Julian would like their mother to be the first contact for decisions regarding Julian and if there is any problem we are to call Israel. 3. Appointment will be made with Dr. Alexander for follow-up. 4. Discontinue Seoa-[id number] blood sugars are less than 180 on no treatment for diabetes. 5. 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 6. Encouragement provided to Julian to increase his fluid intake. 7. Since Julian is lucid today and able to make decisions about his care going forward the is going to discuss options for DC with him. 8. check orthostatic BP's today Visit Charges Inpatient E&M: 15622 Subs Hosp L2
--- NOTE | 2022-03-10 11:16 | CASEMGMT ---
Addendum entered by Tania Jay 03/10/22 16:19: [facility] does not have any beds Addendum entered by Tania Jay 03/10/22 15:34: Received return call from . is aware it is not recommended that pt to return home from . SKINNY explained this worker attempted to speak with pt about DC options, but he was not understanding conversation and does not want to go anywhere but home. reports she has received calls from pt saying he isn't going to a detention because he cannot afford it. knows the house needs to be cleaned up prior to pt returning home. SW explained it is a benefit to her and the pt to have the home conditions improved. expressed understanding. SW explained [facility] insurance may not approve SNF stay, and if not, it would be an OOP cost. Inquired about finances. was unsure of monthly income or savings account balance since pt managed the finances. is going to talk to the pt and son about financial information. agrees they do not have money to pay for a SNF. SW explained Medicaid, but that it takes time. Offered to leave Medicaid application in pt's room for to complete over the weekend. agreeable. SKINNY inquired about SNF choices. would like referrals to [facility], [facility] and [facility]; does not want [facility]. [facility] Will continue to follow. Original Note: Social Work spoke with and children yesterday about DC planning. and children all agree pt cannot return home right now, with the home in that condition, especially. All in agreement for SNF or AL. Children would like to make initial decisions and children can assist. SKINNY attempted to call to follow up, but it went straight to voicemail and the voicemail box was full. SKINNY left message with sonIsrael and advised of sending lists of AL and SNFs to all parties via [employer] and insurance NRD 03/16. SW to follow for continued discharge planning. Tania Jay, WILMER TAVARES
[2022-03-10 15:51] VITALS: BMI 21.6
[2022-03-10 21:05] VITALS: PULSE 63
[2022-03-10] MEDS: Atorvastatin Calcium 80 MG Tablet PO (21:05)
[2022-03-10] MEDS: traZODone 100 MG Tablet PO (21:05)
[2022-03-10 21:11] VITALS: BP 128/59; PULSE 63; RESP 16; TEMP 36.9; O2SAT 98
[2022-03-10 22:15] LABS: Bedside Glucose 175 mg/dL (74-106)
[2022-03-11 00:04] VITALS: BMI 21.6
[2022-03-11 06:45] VITALS: BP 126/59; BP 132/63; BP 135/59; PULSE 49; PULSE 51; PULSE 53
[2022-03-11] MEDS: Losartan Potassium 100 MG Tablet PO (08:01)
[2022-03-11] MEDS: Aspirin 81 MG TAB.CHEW PO (08:01)
[2022-03-11] MEDS: Escitalopram Oxalate 20 MG Tablet PO (08:02)
[2022-03-11] MEDS: Heparin Injection (Vial) 5,000 UNIT/ML VIAL 5000 UNIT SC ×2 (08:02→20:25)
[2022-03-11 08:03] VITALS: BP 116/58; PULSE 46
[2022-03-11] MEDS: Famotidine 20 MG Tablet PO ×2 (08:03→20:26)
[2022-03-11] MEDS: Cyanocobalamin 500 MCG Tablet 1000 MCG PO (08:04)
[2022-03-11] MEDS: Clopidogrel Bisulfate 75 MG Tablet PO (08:04)
[2022-03-11 08:16] VITALS: BP 134/69; PULSE 58; RESP 18; TEMP 36.4; O2SAT 98
[2022-03-11 16:33] VITALS: BMI 21.6
[2022-03-11 20:23] VITALS: BP 124/54; PULSE 56; RESP 18; TEMP 36.6; O2SAT 97
[2022-03-11] MEDS: traZODone 100 MG Tablet PO (20:25)
[2022-03-11 20:26] VITALS: PULSE 59
[2022-03-11] MEDS: Atorvastatin Calcium 80 MG Tablet PO (20:26)
[2022-03-11] MEDS: Metoprolol Tartrate 100 MG Tablet PO (20:26)
[2022-03-11 20:30] VITALS: BMI 21.6
[2022-03-12 08:33] VITALS: BP 116/64; PULSE 60; RESP 16; TEMP 36.4; O2SAT 98
[2022-03-12 08:43] VITALS: BP 116/64; PULSE 60
[2022-03-12] MEDS: Senna/Docusate Sodium 1 Tablet 2 TABLET PO (08:43)
[2022-03-12] MEDS: Metoprolol Tartrate 100 MG Tablet PO ×2 (08:43→20:52)
[2022-03-12] MEDS: Clopidogrel Bisulfate 75 MG Tablet PO (08:43)
[2022-03-12] MEDS: Cyanocobalamin 500 MCG Tablet 1000 MCG PO (08:44)
[2022-03-12] MEDS: Aspirin 81 MG TAB.CHEW PO (08:45)
[2022-03-12] MEDS: Heparin Injection (Vial) 5,000 UNIT/ML VIAL 5000 UNIT SC ×2 (08:45→20:51)
[2022-03-12] MEDS: Famotidine 20 MG Tablet PO ×2 (08:46→20:51)
[2022-03-12] MEDS: Losartan Potassium 100 MG Tablet PO (08:46)
[2022-03-12] MEDS: Escitalopram Oxalate 20 MG Tablet PO (08:46)
[2022-03-12 16:02] VITALS: BMI 21.6
[2022-03-12 19:16] VITALS: BP 135/60; PULSE 58; RESP 16; TEMP 36.8; O2SAT 99
[2022-03-12 20:43] VITALS: BMI 21.6
[2022-03-12 20:52] VITALS: PULSE 61
[2022-03-12] MEDS: traZODone 100 MG Tablet PO (20:52)
[2022-03-12] MEDS: Atorvastatin Calcium 80 MG Tablet PO (20:52)
[2022-03-13 07:38] VITALS: BP 122/68; PULSE 50; RESP 18; TEMP 36.3; O2SAT 99
[2022-03-13] MEDS: Escitalopram Oxalate 20 MG Tablet PO (09:13)
[2022-03-13] MEDS: Clopidogrel Bisulfate 75 MG Tablet PO (09:13)
[2022-03-13] MEDS: Aspirin 81 MG TAB.CHEW PO (09:13)
[2022-03-13] MEDS: Cyanocobalamin 500 MCG Tablet 1000 MCG PO (09:13)
[2022-03-13] MEDS: Losartan Potassium 100 MG Tablet PO (09:13)
[2022-03-13] MEDS: Famotidine 20 MG Tablet PO ×2 (09:13→21:50)
[2022-03-13] MEDS: Heparin Injection (Vial) 5,000 UNIT/ML VIAL 5000 UNIT SC ×2 (09:13→21:49)
[2022-03-13 09:15] VITALS: PULSE 62
[2022-03-13] MEDS: Metoprolol Tartrate 100 MG Tablet PO ×2 (09:15→21:49)
--- NOTE | 2022-03-13 11:58 | PCM.PROGNOTE ---
Subjective Subjective Julian was seen on team rounds today. His Melani was present in the room and his son Julian participated by phone. Afebrile VSS Maintaining appropriate oxygen saturation on RA Oral intake is good Discussed with nursing - no problems that need addressed. He is sleeping well at night and is always cooperative. No agitation. Reviewed the PT/OT/ST notes Medication list reviewed. Julian told us today he was not going to a senior care. We told him he was not going to a NH he was going to a SNF for additional therapy. This will also allow time for family to get the house in order so that he will have an adequate lean for walking in the house itself. We also discussed that he is not able to drive and he told me he will drive when he is having a good day. He read the handout on Lewy body dementia I gave him and I answered the questions he had. He yelled the day, month, and his name at me today to prove he is fine. He tells me that he will call me on the days he is fine to drive. He has no complaints today. Objective Data Objective Data Vital Signs: Vital Signs Temp Pulse Resp BP Pulse Ox O2 Del Method 97.3 F L 62 18 122/68 H 99 Room Air 03/13/22 07:38 03/13/22 09:15 03/13/22 07:38 03/13/22 07:38 03/13/22 07:38 03/13/22 07:38 Oxygen Delivery Method Room Air Weight: 126 lb 6 oz Body Mass Index (BMI) 21.6 Intake & Output: Intake and Output for Last 24 Hours 03/11/22 03/12/22 03/13/22 23:59 23:59 23:59 Intake Total 1560 / 1560 1240 / 1240 480 / 480 Output Total 1000 / 1000 500 / 500 Balance 560 / 560 740 / 740 480 / 480 Lab / Micro Data Result Diagrams: 03/10/22 04:10 03/10/22 04:10 Micro: Microbiology 03/04/22 07:15 Stool Stool Occult Blood (MALIA) - Final Physical Exam Const alert Constitutional Narrative: somewhat belligerent today without being aggressive. Not wanting to reason. Pt does not believe he has any deficits. He is rather grandiose in his thinking today and delusional regarding his ability to function in the real world when he has a bad day and is confused with poor safety awareness and not able to do things like manage a check book, pay bills, drive, etc. Resp normal respiratory effort and clear to auscultation bilaterally Cardio regular rate, regular rhythm and no gallops GI normal to inspection, nondistended, normoactive bowel sounds, soft to palpation and non-tender Extremity no calf tenderness General Extremity: Negative for edema Skin General Skin Exam: no breakdown Psych Thought Content: delusion(s) Assessment & Plan Assessment/Plan (1) Debility: (2) Stroke/cerebrovascular accident: (3) Left leg weakness: (4) Cognitive deficit as late effect of cerebrovascular accident (CVA): (5) Visual hallucinations: (6) Lewy body dementia: (7) Iron deficiency anemia: (8) Hypertension: (9) Diabetes mellitus, type 2: (10) Depression: (11) Coronary artery disease: PLAN: Plan 1. Continue therapy 2. SW spent a lot of time with Melani and Julian and he is at this moment agreeable to going to a SNF but, that could change tomorrow. 3. 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 Will follow up with Dr. Alexander from neurology 5. Must have an appt with a PCP prior to DC. 6. If he decides to go home will have APS follow up at their home. Charges/Coding Visit Charges Inpatient E&M: 64486 Subs Hosp L2
[2022-03-13 14:09] VITALS: BMI 21.6
--- NOTE | 2022-03-13 16:46 | CASEMGMT ---
Social Work - IDT met with patient, Melani, and then via phone son Julian BELTRAN ([phone]) for Team meeting. Discussed patient's progresss in PT/OT/ST/SN. Patient is progressing, but still having periodic cognitive impairment. [employer] NRD is 2.9.23. Updated to discharge planning- [facility] unable to accept (no beds), [facility] declined based on not taking pending Medicaid, and [facility] still pending. This sign writer letterer or painter explained will need some additional choices for SNF in light of 2 of 3 SNF choices not working out. Patient quiet and staring during this part of conversation about discharge planning to SNF. expressed that patient does not want to go to a SNF. Patient then expressed this same thought. Team discussed concern about patient's vacillating cognition, impulsivity with intermittent euphoric mood, and how this would equate to safety at home (home is reported to have some hoarding complications inside). had a list of questions regarding VA, terminal press operator care policies, and medicaid. This sign writer letterer or painter agreed to meet with patient and later this afternoon to further discuss. Encouraged to call the insurance account specialist to see if there is a senior living care policy in place. Will Reteam weekly during hospital stay. Plan: Home with versus Nursing facility. -JINA Colby MSW
--- NOTE | 2022-03-13 17:06 | CASEMGMT ---
Social Work - RU Follow up with patient and from [facility] meeting today, 2.. Met with patient and Melani at patient's bedside. Patient sitting in chair. Discussion ensued about discharge recommendations for continued NF stay. reports there is no prison policy in place, but was told Ricky will pay for 20 days in a SNF. Educated there is a SNF benefit, but benefit does not equate to automatic use, that approval of benefit is determined on need. asked about VA helping out with cost. Educated this telegraphic typewriter mechanic can call the VA to check on patient's eligibility. Through discussion patient reports it has been over a year since last seen at [facility] in [place], and that it was cheaper to seek out care and prescriptions outside of the VA system. Educated patient/, that based on comments by patient this telegraphic typewriter mechanic doubtful patient is service connected for custodial benefits. asked if Medicaid has to be a forever thing. Educated there is nursing facility and community Medicaids, both dependent on need. Educated there is a spousal impoverishment clause for custodial medicaid, and that with community medicaid there is potential access to other services such as through the [facility] on [facility]. asked about food stamps which this telegraphic typewriter mechanic educated is done via the medicaid application. Through conversation patient continued to ask why a nursing facility has been recommended. Reiterated and reinforced what was discussed at [facility] today. also mentioned that attempting to clean out the home, for a safer path through the house for patient. Patient made comments that has been living this way his whole life, to which this telegraphic typewriter mechanic agreed, but also gently pointed out patient was living this way pre-stroke. Educated that with medical changes, also comes need to adjust to lifestyle. Topics of losing driving privileges also touched on, and patient expressed understanding that not allowed to drive again until cleared by neurology. Through conversation became apparent that patient wanted to be heard about concerns, and be included in decision making. Patient questioned this telegraphic typewriter mechanic what would happen if the patient packed up all of his bags and returned home to [place] right now. This telegraphic typewriter mechanic acknowledged to the patient, that this would be the patient's right to do so, just as it is the patient's right to refuse to go to a nursing facility. Reviewed with patient that it is the hope of the team the patient will continue to work with the team for continued rehab, and take safety into consideration when agreeing to a discharge plan. At one point, the patient looked at Melani and clearly stated I have the final say about going to a custodial. This telegraphic typewriter mechanic reinforced that patient does indeed have the say about his discharge plan. Extended conversation ensued, and the patient did agree to a short-term stay at a nursing facility while the continues to work on cleaning up the home. Reviewed that an attempt for approval for skilled care via [employer] can be made, but this is no guarantee and therefore do need to have a backup plan for payment. Reviewed Medicaid application. reports has this almost completed, but does not know income as this is something patient has kept private. Patient smiled and acknowledged that he has been in the person taking care of the finances. Patient reports to have Social Security in 3 different pensions though total income was not disclosed or discussed during this intervention. Plan: Short term NF. Awaiting on response from [facility]. Next choice would be the [facility]. -TEA Colby, PUBLICIST *This note was generated with Navarik dictation software. It may contain incorrect words, spelling, and punctuation that were not noted in review of the chart prior to signing*
--- NOTE | 2022-03-13 17:26 | CASEMGMT ---
Social Work - REYNOLD [facility] update that [facility] denied patient for admission. No reason given. With patient's previously stated permission today, and 's interest in whether VA benefits are available for SNF, this ticket writer called the [facility] at [phone]. Spoke with social work job titles Nessa. Able to verify that patient is NOT service connected so has not NF benefits. It has been longer than a year since patient has seen anyone at the VA, though VA SW encouraged patient get re-enrolled as if enrolled veterans often have access to home health care, home health aids, respite care, and even hospice room/board if enrolled. There is a Health Enrollment and Eligiblity Hotline through the [place] to get started on re-enrollment, . can call, but would be good to have patient nearby to answer questions when needed. Called patient's son Julian Llamas at [phone] (patient also agreed for this ticket writer to loop son into what has transpired today). Updated to follow up conversation with patient and Melani, VA option, and where things stand with NF referrals. Son expressed appreciation for time and for taking time to talk to patient and get patient more on board with the idea of NF, if even for short term. Son reports the children have been worried about parents for some time, and know that home situation in current hoarding condition is likely not the best. Supportive listening provided. Plan: Referral to be made to the [facility]. Will follow up with patient/ on Medicaid application and also give VA information. NRD with insurance is 2.9.23. -JINA Colby, WILMER
[2022-03-13 19:01] VITALS: BP 106/66; PULSE 56; RESP 18; TEMP 37.1; O2SAT 98
--- NOTE | 2022-03-13 19:24 | CASEMGMT ---
Social Work Referral sent to [facility] [place] via [facility] per family request. WILMER UriasW
[2022-03-13 21:49] VITALS: PULSE 66
[2022-03-13] MEDS: traZODone 100 MG Tablet PO (21:50)
[2022-03-13] MEDS: Atorvastatin Calcium 80 MG Tablet PO (21:50)
[2022-03-13 22:01] VITALS: BMI 21.6
--- NOTE | 2022-03-14 05:14 | NURSING ---
PVR #1. Str cathed for 400mL output and BS for 13mL remaining.
[2022-03-14 07:59] VITALS: BP 148/74; PULSE 56; RESP 16; TEMP 35.9; O2SAT 99
[2022-03-14] MEDS: Escitalopram Oxalate 20 MG Tablet PO (09:02)
[2022-03-14] MEDS: Famotidine 20 MG Tablet PO ×2 (09:02→21:24)
[2022-03-14] MEDS: Heparin Injection (Vial) 5,000 UNIT/ML VIAL 5000 UNIT SC ×2 (09:02→21:26)
[2022-03-14] MEDS: Aspirin 81 MG TAB.CHEW PO (09:02)
[2022-03-14] MEDS: Losartan Potassium 100 MG Tablet PO (09:02)
[2022-03-14] MEDS: Cyanocobalamin 500 MCG Tablet 1000 MCG PO (09:03)
[2022-03-14] MEDS: Clopidogrel Bisulfate 75 MG Tablet PO (09:03)
--- NOTE | 2022-03-14 10:09 | PN_ITS ---
Subjective Subjective Afebrile VSS-blood pressures are controlled. Heart rate ranges from Maintaining appropriate oxygen saturation on RA Oral intake is good Discussed with nursing - no problems that need addressed. He is no longer get ting up without the nurse or aide being present. He is also not removing the alarm.. Has been cooperative. Reviewed the PT/OT/ST notes Medication list reviewed. Julian denies lightheadedness, vertigo, CP, SOB at rest, SOB with exertion, cough, nausea, vomiting, abd pain, diarrhea, constipation, dysuria, calf pain and ankle swelling. He is appropriate and calm and is now able to participate in higher level executive function task, like managing a check book and his finances. Objective Data Objective Data Vital Signs: Vital Signs Temp Pulse Resp BP Pulse Ox O2 Del Method 96.7 F L 56 L 16 148/74 H 99 Room Air 03/14/22 07:59 03/14/22 07:59 03/14/22 07:59 03/14/22 07:59 03/14/22 07:59 03/14/22 07:59 Oxygen Delivery Method Room Air Weight: 125 lb 10.616 oz Body Mass Index (BMI) 21.6 Intake & Output: Intake and Output for Last 24 Hours 03/12/22 03/13/22 03/14/22 23:59 23:59 23:59 Intake Total 1240 / 1240 1280 / 1280 250 / 250 Output Total 500 / 500 450 / 450 250 / 250 Balance 740 / 740 830 / 830 0 / 0 Lab / Micro Data Result Diagrams: 03/17/22 05:27 03/17/22 05:27 Micro: Microbiology 03/04/22 07:15 Stool Stool Occult Blood (MALIA) - Final Physical Exam Const alert Constitutional Narrative: He is calm and speaking in a normal voice. 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 (7) Iron deficiency anemia: (8) Hypertension: PLAN: Controlled (9) Diabetes mellitus, type 2: PLAN: Diet controlled at present (10) Depression: (11) Coronary artery disease: (12) Chronic renal failure, stage 3a: PLAN: Plan Continue therapy Plan for discharge to custodial unit so that family can clean up the house and prepare for his homecoming. Will need follow up with cardiology - will need to find out who ordered the event monitor Will follow up with Dr. Alexander for neurology Should see a production sound mixer in the future Get Lab on Sunday. Charges/Coding Visit Charges Inpatient E&M: 33880 Subs Hosp L2
[2022-03-14 10:30] VITALS: BP 122/81; PULSE 60
[2022-03-14] MEDS: Metoprolol Tartrate 100 MG Tablet PO ×2 (10:30→21:24)
--- NOTE | 2022-03-14 13:33 | TELEMED_ITS ---
SOC Telemed has confirmed receipt of a request for visit. This document confirms receipt of the order initiating the consult. To find the results of the consultation, please view the patient's reports for the scanned Telemed Consult.
[2022-03-14 17:00] VITALS: BMI 21.6
[2022-03-14 21:24] VITALS: PULSE 62
[2022-03-14] MEDS: traZODone 100 MG Tablet PO (21:24)
[2022-03-14] MEDS: Atorvastatin Calcium 80 MG Tablet PO (21:24)
[2022-03-14 21:32] VITALS: BP 116/65; PULSE 61; RESP 17; TEMP 37.1; O2SAT 99; BMI 21.6
[2022-03-15 07:21] VITALS: BP 142/62; PULSE 61; RESP 16; TEMP 36.1; O2SAT 99
[2022-03-15] MEDS: Cyanocobalamin 500 MCG Tablet 1000 MCG PO (08:14)
[2022-03-15 08:15] VITALS: PULSE 61
[2022-03-15] MEDS: Escitalopram Oxalate 20 MG Tablet PO (08:15)
[2022-03-15] MEDS: Famotidine 20 MG Tablet PO ×2 (08:15→21:10)
[2022-03-15] MEDS: Losartan Potassium 100 MG Tablet PO (08:15)
[2022-03-15] MEDS: Metoprolol Tartrate 100 MG Tablet PO ×2 (08:15→21:09)
[2022-03-15] MEDS: Aspirin 81 MG TAB.CHEW PO (08:15)
[2022-03-15] MEDS: Clopidogrel Bisulfate 75 MG Tablet PO (08:15)
[2022-03-15] MEDS: Heparin Injection (Vial) 5,000 UNIT/ML VIAL 5000 UNIT SC ×2 (08:19→21:10)
--- NOTE | 2022-03-15 08:57 | CASEMGMT ---
Social Work Spoke with to follow up on [employer] application. plans to provide it to this worker today. SW provided phone number for VA for to call with pt present to apply for services at home. SW reeducated to [employer] precert and update process at SNF as coverage is not guaranteed and stressed importance of Medicaid approval. sounded overwhelmed and will speak with pt and complete tasks. SW offered ongoing assistance. Will continue to follow. WILMER UriasW
[2022-03-15 16:32] VITALS: BMI 21.6
[2022-03-15 19:45] VITALS: BP 123/66; PULSE 61; RESP 16; TEMP 36.6; O2SAT 96
[2022-03-15 20:10] VITALS: O2SAT 96
[2022-03-15 21:09] VITALS: BP 123/66; PULSE 61
[2022-03-15] MEDS: Atorvastatin Calcium 80 MG Tablet PO (21:09)
[2022-03-15] MEDS: traZODone 100 MG Tablet PO (21:10)
[2022-03-16 07:35] VITALS: BP 133/71; PULSE 60; RESP 16; TEMP 36.6; O2SAT 98
[2022-03-16 07:51] VITALS: BP 133/71; PULSE 60
[2022-03-16] MEDS: Aspirin 81 MG TAB.CHEW PO (07:51)
[2022-03-16] MEDS: Escitalopram Oxalate 20 MG Tablet PO (07:51)
[2022-03-16] MEDS: Famotidine 20 MG Tablet PO ×2 (07:51→22:06)
[2022-03-16] MEDS: Metoprolol Tartrate 100 MG Tablet PO ×2 (07:51→22:06)
[2022-03-16] MEDS: Cyanocobalamin 500 MCG Tablet 1000 MCG PO (07:52)
[2022-03-16] MEDS: Clopidogrel Bisulfate 75 MG Tablet PO (07:52)
[2022-03-16] MEDS: Losartan Potassium 100 MG Tablet PO (07:52)
[2022-03-16] MEDS: Heparin Injection (Vial) 5,000 UNIT/ML VIAL 5000 UNIT SC ×2 (07:52→22:06)
--- NOTE | 2022-03-16 12:29 | PN_ITS ---
Progress Note Afebrile VSS Maintaining appropriate oxygen saturation on RA Oral intake is good Discussed with nursing - no problems that need addressed Reviewed the PT/OT/ST notes Medication list reviewed. The EEG was suggestive of a right hemispheric structural abnormality with no epileptiform discharges or seizure patterns. Julian denies hallucinations and the therapists tell me that he has not had any hallucinations with therapy in the past few days. He is doing very well in therapy and the therapists all feel he would be OK going home rather to another facility. I agree with them. I still do not want him driving until he is seen by a neurologist. He has no complaints today. Physical Exam Const alert Resp normal respiratory effort and clear to auscultation bilaterally Cardio regular rate, regular rhythm and no gallops GI normal to inspection, nondistended, normoactive bowel sounds, soft to palpation and non-tender Extremity no calf tenderness General Extremity: Negative for edema Skin General Skin Exam: no breakdown Assessment & Plan Assessment/Plan (1) Debility: (2) Stroke/cerebrovascular accident: (3) Left leg weakness: (4) Cognitive deficit as late effect of cerebrovascular accident (CVA): (5) Visual hallucinations: (6) Lewy body dementia: (7) Iron deficiency anemia: (8) Hypertension: (9) Diabetes mellitus, type 2: (10) Depression: (11) Coronary artery disease: PLAN: Plan 1. Continue therapy 2. BMP and CBC with no differential tomorrow 3. Plan discharge for Sunday home - Will discuss with Israel Moody. 4. Since the hallucinations pre-existed the stroke I am still suspicious he may have Lewy body dementia. I think he is stable to go home with periodic check-in from his sons. 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 Visit Charges Inpatient E&M: 25607 Subs Hosp L2
[2022-03-16 12:50] VITALS: BMI 21.6
--- NOTE | 2022-03-16 12:51 | CASEMGMT ---
Social Work Message sent via [employer] to follow up on acceptance/denial. IDT discussed patient's progress and DC plans. IDT suggesting pt can DC home with and does not need SNF at this time. SW to refer to APS d/t to home conditions. IDT recommending outpatient PT/ST if transportation to appts is not an issues. No DME needs. IDT agreeable to DC 03/18. SW to speak with and pt. Tania Jay, CO DIRECTOR EXCAVATION LABORER
[2022-03-16 22:00] VITALS: BP 123/67; PULSE 68; RESP 16; TEMP 36.5; O2SAT 97
[2022-03-16 22:06] VITALS: PULSE 68
[2022-03-16] MEDS: Atorvastatin Calcium 80 MG Tablet PO (22:06)
[2022-03-16] MEDS: traZODone 100 MG Tablet PO (22:06)
[2022-03-16 23:39] VITALS: BMI 21.6
[2022-03-17 05:58] LABS: Hematocrit 44.2 % (40-54); Hemoglobin 13.5 g/dL (13.0-16.5); Mean Corp Hgb Conc 30.5 g/dL (32-36); Mean Corpuscular Hgb 26.2 pg (27.0-32.0); Mean Corpuscular Volume 85.8 fL (80-94); Mean Platelet Vol. 9.8 fl (6.2-12.0); POSITIVE MORPHOLOGY YES; Platelet Count 138 K/mm3 (150-450); RBC Distribution Width CV 21.2 % (11.6-14.6); RBC Distribution Width SD 65.2 fl (35.1-43.9); Red Blood Count 5.15 M/mm3 (4.6-6.2); White Blood Count 5.9 K/mm3 (4.4-11.0)
[2022-03-17 06:06] LABS: Scan Indicated on CBC? Y/N YES- FLAGS NOTED
[2022-03-17 06:23] LABS: Anion Gap 5 (5-15); BUN 30 mg/dL (7-18); BUN/Creat Ratio 19.1 RATIO (10-20); Calcium,Total 9.1 mg/dL (8.5-10.1); Chloride 111 mmol/L (98-107); Creatinine, Serum 1.57 mg/dL (0.70-1.30); EST Glomerular Filtration Rate 46 mL/min (>60); Est Glom Filt Rate - Afr Amer 56 mL/min (>60); Glucose 109 mg/dL (74-106); Potassium 5.1 mmol/L (3.5-5.1); Sodium Level 145 mmol/L (136-145)
[2022-03-17 06:29] LABS: Differential Comment SCANNED
[2022-03-17 07:18] VITALS: BP 113/68; PULSE 56; RESP 16; TEMP 36.3; O2SAT 99
[2022-03-17 08:27] VITALS: PULSE 56
[2022-03-17] MEDS: Famotidine 20 MG Tablet PO ×2 (08:27→21:13)
[2022-03-17] MEDS: Heparin Injection (Vial) 5,000 UNIT/ML VIAL 5000 UNIT SC ×2 (08:27→21:15)
[2022-03-17] MEDS: Losartan Potassium 100 MG Tablet PO (08:27)
[2022-03-17] MEDS: Metoprolol Tartrate 100 MG Tablet PO ×2 (08:27→21:13)
[2022-03-17] MEDS: Escitalopram Oxalate 20 MG Tablet PO (08:28)
[2022-03-17] MEDS: Aspirin 81 MG TAB.CHEW PO (08:28)
[2022-03-17] MEDS: Cyanocobalamin 500 MCG Tablet 1000 MCG PO (08:28)
[2022-03-17] MEDS: Clopidogrel Bisulfate 75 MG Tablet PO (08:28)
--- NOTE | 2022-03-17 10:17 | CASEMGMT ---
Social Work Spoke with about IDT discussion and agreeable to setting DC date for 03/18 for pt to return home. and pt agreeable to DC date. Recommending outpatient therapy. can transport and prefers [facility]. SW faxed referral to [facility] for PT/OT/ST. No DME needs. to transport home at 1000. SKINNY phoned referral to [facility] APS, spoke with Beth Drake, for home conditions and ensure safety. Plan: DC home with 03/18, [facility] PT/OT/ST, APS Tania Jay, MANAGER RESTAURANT BOILER OPERATORS SUPERVISOR
--- NOTE | 2022-03-17 11:10 | DCINST_ITS ---
Discharge Instructions Diet Discharge Diet: - (low fat, low salt, not too many carbs at one time - eat vegetables and lean meat which is broiled, baked or boiled and not deep fried.One piec of fruit with meals is OK.) Activity Discharge Activity: May Not Drive Weight Bearing Status: Full weight bearing Dressing / Incision Call your doctor if you observe: Fever of 101 or Higher, Inability to urinate, S hortness of breath, Dizziness, Fainting spells, Swelling in the ankles, Chest pain, Increased palpitations (irregular heartbeat), Calf discomfort and - (STROKE symptoms: facial droop, slurred speech, inability to get words out, weakness on 1 side of the body and not the other, numbness on 1 side of the body and not the other, inability to maintain your balance sitting or standing, vertigo. ) Follow Up Care Please Follow Up With: Eric Can MD When: 05/10/22 at 2:15 PM - She will be your primary Care doctor and her office is in [place]. You also have an appt with Dr. Ney Alexander who is a neurologist and that appt is on 03/28/22 at 11:00 AM. Test Results: Test results from this visit will be discussed in further detail at your follow- up appointment, if applicable. Pending Tests Upon Discharge: none Discharge Plan Admission Admit Date/Time: 03/02/22 17:28 Primary Reason for Your Visit: CVA Attending Provider: Xi Muller Instructions Patient Instructions: Stroke and Heart Disease, Stroke Prevention Activity Additional Instructions / Restrictions: 1. You have done very well in therapy. When you first came to rehab you were confused, impulsive and had poor safety awareness and poor memory. You were not safe walking even with a wheeled walker. You were having hallucinations. Now your mentation is good and you do not even need an assistive device to walk. You have not had any hallucinations in several days. Your EEG (brain wave test) did not show any seizure activity. Hallucinations are not associated with strokes. Patients get confused but, they do not hallucinate. You were not on any medications (like narcotics) that would make you confused. I think you may have early Lewy body dementia. I am referring you to the neurologist to make the diagnosis. Because of the hallucinations I do not want you driving for now. It is not safe for you OR the other drivers on the road. I am sending the paperwork to the DMV to suspend your drivers license. If Dr. Alexander feels you are safe to drive I am recommending you have a complete drivers evaluation to get it back. Not trying to be mean Julian........just trying to make sure you are safe. 2. We are also going to make a referral to APS (Adult Protective Services) to come and evaluate your living situation to make sure the house is safe for you and Melani to live in.......again I want to make sure you guys are safe in your home. Melani has been cleaning up and now you can help.....good luck. 3. You are no longer anemic since you have received IV ronit and I am discharging you on a supplement. You have been eating very well in the rehab unit but, I was told by your family that you were not eating well at home and had lost a significant amount to weight in the past 6 months. The public health educator at the hospital prior to being transferred to rehab diagnosed you with sever malnutrition. Make sure you maintain the weight you are currently at......you godd stand to gain some weight. Your ideal body weight is 136 lbs. 4. Your kidney function is impaired....I suspect from uncontrolled high blood pressure the years you were not seeing a doctor or taking medications. You should see a trim setter (kidney doctor). We are going to make an appt for you to see Dr. Flores. His office is here in [place]. 5. It is very important to take your medications as prescribed and follow up with your PCP regularly to prevent additional strokes or heart attacks in the future. Your diabetes is now diet controlled so you will not need to take any diabetic pills. Just watch not to eat too many carbs (pasta, rice, cookies, crackers, potatoes, ice cream/sweets, too many fruits at one time.) 6. It was a pleasure to get to know you Julian and I so appreciate that you worked hard and were always cooperative with the therapists. Stay well my friend and PLEASE take better care of yourself. If you or your family have any questions after you leave rehab please do not hesitate to call me. OFFICE: [phone] CELL: [phone] Discharge Orders/Prescriptions Prescriptions: New losartan 25 mg Tablet 25 mg PO DAILY Qty: 30 0RF Continued aspirin 81 mg Tablet 81 mg PO DAILY atorvastatin 80 mg Tablet 80 mg PO DAILY Qty: 30 0RF metoprolol tartrate 100 mg Tablet 100 mg PO BID Qty: 60 0RF clopidogrel 75 mg Tablet 75 mg PO DAILY Qty: 30 0RF famotidine 20 mg Tablet 20 mg PO BID Qty: 60 0RF trazodone 100 mg Tablet 100 mg PO QHS Qty: 30 0RF nitroglycerin 0.4 mg Tablet, Sublingual 0.4 mg SUBLINGUAL Q5M PRN (Reason: Chest Pain) Qty: 1 0RF Rx Instructions: do not exceed 3 doses per episode escitalopram oxalate 20 mg Tablet 20 mg PO DAILY Qty: 30 0RF cyanocobalamin (vitamin B-12) 1,000 mcg/15 mL liquid 1,000 mcg PO DAILY Qty: 480 0RF Discontinued acetaminophen [Tylenol] 325 mg Tablet 1,000 mg PO Q6H PRN (Reason: Pain) metformin 850 mg Tablet 850 mg PO BID losartan 100 mg Tablet 100 mg PO DAILY Other Ambulatory Orders: Basic Metabolic Profile (BMP) (Routine) Timeframe: 1 Week Facility: [facility] - Location: Laboratory Ordered By: Dr. Xi Muller Referrals / Follow Up: Eric Can MD [Med Staff - Active Staff] - 05/10/22 2:15 pm Ney Alexander MD [Non-Staff] - 03/28/22 11:00 am (Lowey Body dementia and stroke ) Disposition Disposition (needs filled in before D/C Order can be placed): Home, Self Care
[2022-03-17 12:41] VITALS: BP 122/60; BP 126/68; BP 130/70; PULSE 63; PULSE 65; PULSE 68
--- NOTE | 2022-03-17 12:49 | PCM.DC.SUM ---
Providers Date of Admission: 03/02/22 Date of Discharge: 03/18/22 Primary Care Physician: Dr. Feliciano Can MD Reason For Visit: STROKE Diagnosis Discharge Diagnosis (1) Debility: Status: Acute Code(s): R53.81 - Other malaise (2) Stroke/cerebrovascular accident: Status: Acute Code(s): I63.9 - Cerebral infarction, unspecified Plan: On 02/27/22 MRI of the brain on 02/28/2022 showed evidence for small multifocal infarcts of the territory supplied by the right middle cerebral artery, NURIA/MCA watershed area and the GAG WRITER. There was mild to moderate prominence of the sulci and ventricles. (3) Left leg weakness: Status: Acute Code(s): R29.898 - Other symptoms and signs involving the musculoskeletal system (4) Cognitive deficit as late effect of cerebrovascular accident (CVA): Status: Acute Code(s): I69.319 - Unspecified symptoms and signs involving cognitive functions following cerebral infarction (5) Visual hallucinations: Status: Acute Code(s): R44.1 - Visual hallucinations (6) Lewy body dementia: Status: Suspected Code(s): G31.83 - Neurocognitive disorder with Lewy bodies; F02.80 - Dementia in other diseases classified elsewhere, unspecified severity, without behavioral disturbance, psychotic disturbance, mood disturbance, and anxiety Plan: Suspected due to memory difficulties for a few years, hallucinations and waxing and waning of sx. (7) Iron deficiency anemia: Status: Acute Code(s): D50.9 - Iron deficiency anemia, unspecified (8) Hypertension: Status: Chronic Code(s): I10 - Essential (primary) hypertension Plan: Controlled (9) Diabetes mellitus, type 2: Status: Acute Code(s): E11.9 - Type 2 diabetes mellitus without complications Plan: Diet controlled at present. (10) Depression: Status: Acute Code(s): F32.A - Depression, unspecified Plan: He is on Lexapro 20 mg daily. Also on Trazodone 100 mg at HS for insomnia. (11) Coronary artery disease: Status: Acute Code(s): I25.10 - Atherosclerotic heart disease of alutiiq coronary artery without angina pectoris Plan: Has had 2 stents in the past....about 10 years ago. (12) Chronic renal failure, stage 3a: Status: Acute Code(s): N18.31 - Chronic kidney disease, stage 3a (13) Hyperkalemia: Status: Acute Code(s): E87.5 - Hyperkalemia Plan: 5.1 on 100 mg of Cozaar. Dose decreased to 25 mg and a BMP ordered for 1 week. Referral made to nephrology. (14) Thrombocytopenia: Status: Acute Code(s): D69.6 - Thrombocytopenia, unspecified Plan: Mild, never less than 100. (15) GERD (gastroesophageal reflux disease): Status: Acute Code(s): K21.9 - Gastro-esophageal reflux disease without esophagitis Plan 1. DC home 2. Follow up with Dr. Alexander for CVA and possible Lewy body dementia. 3. 30 day event monitor was removed a few days ago - he does not know which emergency registrar he is supposed to follow up with so we are attempting to figure this out. 4. Follow up with Dr. Flores for Stage 3a CRF........creat clearance is in the low 30's. 5. Requested a new PCP so he is going to follow up with Dr. Can who is an manual equipment mechanic. 6. No driving until he is released by Dr. Alexander to drive. 7. BMP in 1 week with results to me to recheck the borderline potassium and the CREAT since Cozaar is being decreased from 100 mg daily to 25 mg daily. 8. Adult Protective Services to follow-up at the house with Gia and Melani to make sure they are living in a safe clean environment. 9. Iron deficiency anemia may be due to poor nutrition. He had a EGD and Colonoscopy by Dr. Aguilera in [place] in 2019 and the findings were unremarkable.....no polyps and no tumors and no ulcers. Heme stool was negative in rehab. Hemoglobin at discharge is 13.5 with an MCV of 85.8 following supplementation with iron sucrose intravenously and then ferrous sulfate plus vitamin C daily orally. Medications at Discharge Home Medications aspirin 81 mg tablet 81 mg PO DAILY [facility] 03/02/22 atorvastatin 80 mg tablet 80 mg PO DAILY Cholestrol #30 tabs 03/17/22 clopidogrel 75 mg tablet 75 mg PO DAILY Supplement #30 tabs 03/17/22 cyanocobalamin (vitamin B-12) 1,000 mcg/15 mL oral liquid 1,000 mcg (15 mL) PO DAILY #480 mL 03/17/22 escitalopram oxalate 20 mg tablet 20 mg PO DAILY Depression #30 tabs 03/17/22 famotidine 20 mg tablet 20 mg PO BID GERD #60 tabs 03/17/22 losartan 25 mg tablet 25 mg PO DAILY #30 tabs 03/17/22 metoprolol tartrate 100 mg tablet 100 mg PO BID BP #60 tabs 03/17/22 nitroglycerin 0.4 mg sublingual tablet 0.4 mg sublingual Q5M PRN Chest Pain #1 BOTTLE 03/17/22 trazodone 100 mg tablet 100 mg PO QHS sleep #30 tabs 03/17/22 Hospital Course Operations None Procedures Electroencephalogram (EEG showed a right hemispheric structural abnormality (due to stroke) and no epileptiform discharges or seizure patterns.) Summary of Care Provided Hospital Course: GIA DOUGLAS, is a 77 YO M with a PMH of hypertension, hyperlipidemia, coronary artery disease, depression, diabetes mellitus type 2, B12 deficiency, remote TIA and GERD who presented to an emergency department in [place] on 02/27/2022 complaining of left side weakness and numbness in his left hand.? He also had some numbness on the left side of his lower face.? In the emergency department he had a slight left facial droop and denied headache.? The initial NIHSS score was 2 and the sx improved while he was in the ED.? He was admitted for observation for TIA.? He was continued on a statin, aspirin and Plavix.? Significant lab at admission included an elevated creatinine at 1.44.? Lipid panel showed a total cholesterol of 119 with an HDL of 32 and an LDL of 50 on simvastatin 40 mg.? Triglycerides were within normal limits.? EKG revealed normal sinus rhythm with no suspicious ST or T wave changes.? Stat CT brain without contrast showed no evidence of acute cortical infarct or intracranial hemorrhage.? CTA of the head and neck showed no evidence of source vessel arterial occlusion within the head and neck.? There was noncalcified plaque at the right carotid bifurcation and right internal carotid artery origin with estimated 45 to 50% stenosis.? There was moderate atherosclerosis of the carotid siphons bilaterally with mild luminal narrowing but no flow significant intracranial stenosis.? There was no evidence of acute cortical infarct or intracranial hemorrhage.? There was atrophy and mild chronic ischemic white matter demyelination.? At around 0300 that night He had seizure activity.? On telemetry he had bradycardia during the event down to 27.? At 0400 he had increased neurologic deficits with left side flaccid and Left facial droop.? He could not grasp with his left hand.? 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 MRI of the brain was obtained on 02/28/2022 and showed evidence for small multifocal infarcts of the territory supplied by the right middle cerebral artery, NURIA/MCA watershed area and the GAG WRITER. The was thought to represent subacute ischemia.? There was mild to moderate prominence of the sulci and ventricles.? On 03/01/2022 neurological exam was grossly nonfocal except for mild weakness in the left upper extremity and left facial droop.? He was alert and oriented x3.? A transthoracic echocardiogram showed normal left ventricular systolic function with an EF of 60%.? Bubble study was negative for R to L shunt.? Gia was seen by the dry cell and battery assembler at and he was diagnosed with severe malnutrition.? He had decreased appetite for the preceding 6 months with moderate weight loss, moderate to severe muscle wasting and fat loss.? Gia was also seen by PT/OT/ST and found to have dysphagia, left side weakness and cognitive deficits.? Transfer to acute rehab at discharge was recommended.? Gia was admitted to the acute inpatient rehab unit at [facility] on 03/02/2022 for 3 hours of therapy daily to restore independence/function at or near his level prior to the recent stroke. CBC at admission revealed a low HGB with a low normal MCV. Iron studies were obtained and he was found to be iron deficient. He received IV iron sucrose and then was started on Ferrous sulfate and vitamin C.....he is chronically on a acid cadence for GERD and this is known to inhibit absorption of iron from the GI tract. Just prior to DC the HGB was 13.5, up from 11.7 at admission to rehab. Stool was Hemoccult negative. PLT count is variable and ranged from 134,000 to 154,000. Etiology of thrombocytopenia is unknown at this time. He has CRF and the creat at admission to rehab was 1.34 and at DC is 1.57. Postvoid residuals x3 were all less than 60. There was no proteinuria on a UA and it was negative for infection. Gia initially had significant cognitive dysfunction, poor memory, poor safety awareness and he was having visual hallucinations. He was impulsive and kept getting out of bed to ambulate in the ríso. He also had visual hallucinations prior to the stroke and tells me he sees spirits and he hears the spirits laughing. His told me that he has conversations on the speakerphone when she is present in the room with another woman and recently the conversations have been very sexual. About 5 days prior to DC He suddenly started to perform much better with ST on tests of higher executive function function. He denied hallucinations and he was very appropriate. He was no longer impulsive and he was much more aware of safety in performing tasks with PT/OT. We had planned on him going to a SNF at [place] until his and family could clean the house. His is a hoarder and apparently there is very little room to even walk in the house. therapy felt he was safe to go home and this was the patient's wish so he was discharged home and there will be a APS referral made by the to make sure the house is in fact livable. I discussed this with Gia's son Kareem and he is aware an APS referral will be made and he is in agreement with this. Gia was instructed not to drive until he is seen by Dr. Alexander and evaluated for possible Lewy body dementia with waxing and waning cognitive dysfunction, Hallucinations and inappropriate behavior. At the time of discharge Gia was independent with all activities of daily living with the exception of tub/shower transfer for which he should have supervision initially. He had completed 20 steps with no handrail at mod I prior to discharge. He had ambulated up to 2000 feet on uneven surfaces at mod I. He completed a cognitive TUG in < 15 sec and he could not complete this test at all at admission to rehab. Physical Exam Const alert, oriented x3 and no apparent distress Constitutional Narrative: He is calm and speaking in a normal voice. General Appearance: cooperative HEENT normocephalic and head/scalp atraumatic Eyes PERRL and EOMs intact bilaterally Neck supple, no JVD, No nodes and no carotid bruits General: trachea midline Resp normal respiratory effort and clear to auscultation bilaterally Resp Narrative: No conversational dyspnea. Effort and Inspection: Negative for tachypneic or respiratory distress Cardio regular rate, regular rhythm, S1 normal heart sound, S2 normal heart sound, no murmurs, no rub and no gallops Cardio Narrative: No ectopy GI normal to inspection, nondistended, normoactive bowel sounds, soft to palpation and non-tender GI Narrative: No guarding with palpation. No hepatosplenomegaly and no masses appreciated. No abdominal bruits. Extremity no calf tenderness General Extremity: no tenderness to palpation of joints or extremities; Negative for edema Skin Skin Narrative: has some scattered bruising. General Skin Exam: no breakdown Rashes: no rashes Wounds: Negative for wounds noted Neuro CN's II-XII intact bilaterally and no sensory deficits noted Neuro Narrative: He is alert and oriented x3 today. He is appropriate and cooperative. He denies hallucinations at this time but had them daily earlier in the admission until this past Sunday. I do not have an explanation for the hallucinations and cannot really attribute this to the stroke. An EEG was done which revealed a right hemispheric structural abnormality with no epileptiform discharges or seizure patterns. 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 Possible Lewy Body dementia and he was referred to neurology for evaluation and for follow up for stroke care. Weight / BMI Weight Weight: 125 lb 0.034 oz Body Mass Index (BMI) 21.6 ABG / Lab / Microbiology Data Result Diagrams: 03/17/22 05:27 03/17/22 05:27 Laboratory: Laboratory Results - last 24 hr 03/17/22 05:27: WBC 5.9, RBC 5.15, Hgb 13.5, Hct 44.2, MCV 85.8, MCH 26.2 L, MCHC 30.5 L, RDW Std Deviation 65.2 H, RDW Coeff of Irineo 21.2 H, Plt Count 138 L, MPV 9.8, Differential Comment SCANNED 03/17/22 05:27: Sodium 145, Potassium 5.1, Chloride 111 H, Carbon Dioxide 29.0, Anion Gap 5, BUN 30 H, Creatinine 1.57 H, Estim Creat Clear Calc 32.10, Est GFR (MDRD) Af Amer 56 L, Est GFR (MDRD) Non-Af 46 L, BUN/Creatinine Ratio 19.1, Glucose 109 H, Calcium 9.1 Microbiology: Microbiology 03/04/22 07:15 Stool Stool Occult Blood (MALIA) - Final D/C Instructions Discharge Diet: - (low fat, low salt, not too many carbs at one time - eat vegetables and lean meat which is broiled, baked or boiled and not deep fried.One piec of fruit with meals is OK.) Weight Bearing Status: Full weight bearing Call your doctor if you observe: Fever of 101 or Higher, Inability to urinate, Shortness of breath, Dizziness, Fainting spells, Swelling in the ankles, Chest pain, Increased palpitations (irregular heartbeat), Calf discomfort and - (STROKE symptoms: facial droop, slurred speech, inability to get words out, weakness on 1 side of the body and not the other, numbness on 1 side of the body and not the other, inability to maintain your balance sitting or standing, vertigo. ) Pending Tests Upon Discharge: none Please Follow Up With: Eric Can MD When: 05/10/22 at 2:15 PM - She will be your primary Care doctor and her office is in [place]. You also have an appt with Dr. Ney Alexander who is a neurologist and that appt is on 03/28/22 at 11:00 AM. Meaningful Use Info Meaningful Use Diagnoses (Choose all that apply): Ischemic CVA CVA Therapy Assessed for PT,OT and/or ST?: Yes Ischemic Stroke Antithrombotic order at d/c?: Yes Dx of Atrial fib/flutter?: No Anticoagulant at discharge?: No Reason anticoagulant not ordered: Treatment not Indicated (He will have a 30 day event monitor done and follow up with cardiology. ) Statins at discharge?: Yes Primary Dx Acute Ischemic CVA?: Yes IV tPA ordered during stay?: No Reason IV t-PA not ordered: Treatment not Indicated Discharge Plan Admission Admit Date/Time: 03/02/22 17:28 Primary Reason for Your Visit: CVA Attending Provider: Xi Muller Instructions Patient Instructions: Stroke and Heart Disease, Stroke Prevention Activity Additional Instructions / Restrictions: 1. You have done very well in therapy. When you first came to rehab you were confused, impulsive and had poor safety awareness and poor memory. You were not safe walking even with a wheeled walker. You were having hallucinations. Now your mentation is good and you do not even need an assistive device to walk. You have not had any hallucinations in several days. Your EEG (brain wave test) did not show any seizure activity. Hallucinations are not associated with strokes. Patients get confused but, they do not hallucinate. You were not on any medications (like narcotics) that would make you confused. I think you may have early Lewy body dementia. I am referring you to the neurologist to make the diagnosis. Because of the hallucinations I do not want you driving for now. It is not safe for you OR the other drivers on the road. I am sending the paperwork to the [facility] to suspend your drivers license. If Dr. Alexander feels you are safe to drive I am recommending you have a complete drivers evaluation to get it back. Not trying to be mean Gia........just trying to make sure you are safe. 2. We are also going to make a referral to APS (Adult Protective Services) to come and evaluate your living situation to make sure the house is safe for you and Melani to live in.......again I want to make sure you guys are safe in your home. Melani has been cleaning up and now you can help.....good luck. 3. You are no longer anemic since you have received IV ronit and I am discharging you on a supplement. You have been eating very well in the rehab unit but, I was told by your family that you were not eating well at home and had lost a significant amount to weight in the past 6 months. The dry cell and battery assembler at the hospital prior to being transferred to rehab diagnosed you with sever malnutrition. Make sure you maintain the weight you are currently at......you godd stand to gain some weight. Your ideal body weight is 136 lbs. 4. Your kidney function is impaired....I suspect from uncontrolled high blood pressure the years you were not seeing a doctor or taking medications. You should see a climate change risk assessor (kidney doctor). We are going to make an appt for you to see Dr. Flores. His office is here in [place]. 5. It is very important to take your medications as prescribed and follow up with your PCP regularly to prevent additional strokes or heart attacks in the future. Your diabetes is now diet controlled so you will not need to take any diabetic pills. Just watch not to eat too many carbs (pasta, rice, cookies, crackers, potatoes, ice cream/sweets, too many fruits at one time.) 6. It was a pleasure to get to know you Gia and I so appreciate that you worked hard and were always cooperative with the therapists. Stay well my friend and PLEASE take better care of yourself. If you or your family have any questions after you leave rehab please do not hesitate to call me. OFFICE: [phone] CELL: [phone] Discharge Orders/Prescriptions Prescriptions: New losartan 25 mg Tablet 25 mg PO DAILY Qty: 30 0RF Continued aspirin 81 mg Tablet 81 mg PO DAILY atorvastatin 80 mg Tablet 80 mg PO DAILY Qty: 30 0RF metoprolol tartrate 100 mg Tablet 100 mg PO BID Qty: 60 0RF clopidogrel 75 mg Tablet 75 mg PO DAILY Qty: 30 0RF famotidine 20 mg Tablet 20 mg PO BID Qty: 60 0RF trazodone 100 mg Tablet 100 mg PO QHS Qty: 30 0RF nitroglycerin 0.4 mg Tablet, Sublingual 0.4 mg SUBLINGUAL Q5M PRN (Reason: Chest Pain) Qty: 1 0RF Rx Instructions: do not exceed 3 doses per episode escitalopram oxalate 20 mg Tablet 20 mg PO DAILY Qty: 30 0RF cyanocobalamin (vitamin B-12) 1,000 mcg/15 mL liquid 1,000 mcg PO DAILY Qty: 480 0RF Discontinued acetaminophen [Tylenol] 325 mg Tablet 1,000 mg PO Q6H PRN (Reason: Pain) metformin 850 mg Tablet 850 mg PO BID losartan 100 mg Tablet 100 mg PO DAILY Other Ambulatory Orders: Basic Metabolic Profile (BMP) (Routine) Timeframe: 1 Week Facility: [facility] - Location: Laboratory Ordered By: Dr. Xi Muller Referrals / Follow Up: Mustapha Alves [Other] (office will call patient to schedule an appointment after heart monitor is read ) Eric Can MD [Med Staff - Active Staff] - 05/10/22 2:15 pm Tyler Flores MD [Med Staff - Consulting] - (Office will call patient and referral has been sent) Ney Alexander MD [Non-Staff] - 03/28/22 11:00 am (Lowey Body dementia and stroke ) Disposition Disposition (needs filled in before D/C Order can be placed): Home, Self Care Charges/Coding Visit Charges Inpatient E&M: 79833 Disch Hosp >30min
[2022-03-17 15:00] VITALS: BMI 21.6
[2022-03-17 19:33] VITALS: BP 116/72; PULSE 69; RESP 18; TEMP 36.7; O2SAT 94
[2022-03-17 21:00] VITALS: O2SAT 94
[2022-03-17 21:13] VITALS: BP 116/72; PULSE 69
[2022-03-17] MEDS: traZODone 100 MG Tablet PO (21:13)
[2022-03-17] MEDS: Atorvastatin Calcium 80 MG Tablet PO (21:13)
[2022-03-18 07:30] VITALS: BP 143/76; PULSE 52; RESP 16; TEMP 36.2; O2SAT 98
[2022-03-18] MEDS: Cyanocobalamin 500 MCG Tablet 1000 MCG PO (08:08)
[2022-03-18] MEDS: Heparin Injection (Vial) 5,000 UNIT/ML VIAL 5000 UNIT SC (08:08)
[2022-03-18] MEDS: Senna/Docusate Sodium 1 Tablet 2 TABLET PO (08:08)
[2022-03-18 08:09] VITALS: BP 143/76; PULSE 52
[2022-03-18] MEDS: Escitalopram Oxalate 20 MG Tablet PO (08:09)
[2022-03-18] MEDS: Clopidogrel Bisulfate 75 MG Tablet PO (08:09)
[2022-03-18] MEDS: Aspirin 81 MG TAB.CHEW PO (08:09)
[2022-03-18] MEDS: Metoprolol Tartrate 100 MG Tablet PO (08:09)
[2022-03-18] MEDS: Losartan Potassium 25 MG Tablet PO (08:10)
[2022-03-18] MEDS: Famotidine 20 MG Tablet PO (08:10)
== END 2022-03-18 11:45 | disposition home or self-care (01) | DRG 56 ==
PROVIDERS: Admitting Provider Internal Medicine; Visit Provider Internal Medicine
DX: I69.354 Hemiplegia and hemiparesis following cerebral infarction affecting left non-dominant side (principal); E43 Unspecified severe protein-calorie malnutrition; D69.6 Thrombocytopenia, unspecified; E11.22 Type 2 diabetes mellitus with diabetic chronic kidney disease; D50.9 Iron deficiency anemia, unspecified; E78.5 Hyperlipidemia, unspecified; F02.80 Dementia in other diseases classified elsewhere, unspecified severity, without behavioral disturbance, psychotic disturbance, mood disturbance, and anxiety; N18.31 Chronic kidney disease, stage 3a; G31.83 Neurocognitive disorder with Lewy bodies; I12.9 Hypertensive chronic kidney disease with stage 1 through stage 4 chronic kidney disease, or unspecified chronic kidney disease; I25.10 Atherosclerotic heart disease of native coronary artery without angina pectoris; E87.5 Hyperkalemia; K21.9 Gastro-esophageal reflux disease without esophagitis; I69.319 Unspecified symptoms and signs involving cognitive functions following cerebral infarction; I69.391 Dysphagia following cerebral infarction; F17.220 Nicotine dependence, chewing tobacco, uncomplicated; Z95.5 Presence of coronary angioplasty implant and graft; Z79.82 Long term (current) use of aspirin; F32.A Depression, unspecified; Z79.84 Long term (current) use of oral hypoglycemic drugs; Z79.02 Long term (current) use of antithrombotics/antiplatelets; Z79.899 Other long term (current) drug therapy; Z68.21 Body mass index [BMI] 21.0-21.9, adult
CPT/HCPCS: 36415; 80048; 80053; 81001; 82274; 82728; 82962; 83036; 83540; 83550; 83735; 84100; 85027; 92507; 92523; 92610; 95819; 97110; 97112; 97116; 97129; 97130; 97162; 97166; 97530; 97535; 97802; 97803; J7050; A4216; J2916